=== PATIENT | male | born 1970 ===

== ENCOUNTER 2016-10-22 16:34 | Emergency (ER) | payer OTHER ==
[2016-10-22 16:41] VITALS: TEMP 97.7; O2SAT 98
--- NOTE | 2016-10-22 17:14 | C.PDOC ---
History Of Present Illness 46 y/o morbidly obese make c/o left ankle and foot pain since yesterday; pt sts he was walking and heard something snap. pt took 800 mg ibuprofen wth no relief. pt is poor historian. Time Seen by Provider: 10/22/16 16:51 Chief Complaint (Nursing): Lower Extremity Problem/Injury History Per: Patient History/Exam Limitations: no limitations Onset/Duration Of Symptoms: Days (1) Current Symptoms Are (Timing): Worse Severity: Moderate Recent travel outside of the [place]: No - Ankle/Foot Currently Unable To: Bear Weight Past Medical History Reviewed: Historical Data, Nursing Documentation, Vital Signs Vital Signs: Last Vital Signs Temp 97.7 F 10/22/16 16:38 Pulse 88 10/22/16 19:52 Resp 18 10/22/16 19:52 BP 142/85 10/22/16 19:52 Pulse Ox 98 10/22/16 19:56 - Medical History PMH: Asthma, HTN Other PMH: fluid retention Surgical History: No Surg Hx Family History: States: Unknown Family Hx - Social History Hx Alcohol Use: Yes Hx Substance Use: No (denies today) - Immunization History Hx Tetanus Toxoid Vaccination: No Hx Influenza Vaccination: No Hx Pneumococcal Vaccination: No Review Of Systems Constitutional: Negative for: Fever, Chills Musculoskeletal: Positive for: Foot Pain (and ankle left side) Skin: Negative for: Rash Neurological: Negative for: Weakness, Numbness Physical Exam - Physical Exam Appears: Other (morbidly obese ) Skin: Warm, Dry Extremity: Tenderness (left lateral foot and lateral ankle with +2 pitting edema , no calf tenderness), Pedal Edema, No Calf Tenderness, Swelling Extremity: Left: Bony Point Tenderness (ankle. 5th metatarsal), Painful To Bear Weight, Unable To Bear Weight, Bilateral: Normal Color And Temperature Pulses: Left Dorsalis Pedis: Normal, Right Dorsalis Pedis: Normal Neurological/Psych: Oriented x3, Normal Speech, Normal Cognition, Normal Motor, Normal Sensation ED Course And Treatment O2 Sat by Pulse Oximetry: 98 Medical Decision Making Medical Decision Making: pain to foot and ankle[ will give nsaids, get xrays and re-eval 540pm notified by radiology pt has 5th metatarsal fx, podiatry paged. 555 pm podiatry paged. 559 pm discussed with podiatry, resident will come see patient. 750 pm pt seen by podiatry resident; posterior splint applied by resident. pt given crutches. will d/c home with tylkarri and f/u with Dr Johns on thursday. Disposition Discussed With : Melissa Johns Doctor Will See Patient In The: Office Counseled Patient/Family Regarding: Studies Performed, Diagnosis, Need For Followup, Rx Given - Disposition Referrals: Melissa Johns DPM [Staff Provider] - Disposition: HOME/ ROUTINE Disposition Time: 19:52 Condition: STABLE Additional Instructions: NO weight bearing -use crutches at all times. Follow up with Dr Johns on Thursday - call her office tomorrow to make your appointment. Keep splint clean and dry- cover with plastic when bathing. Take Tylenol as prescribed for pain. Prescriptions: Acetaminophen [Tylenol 325mg tab] 975 mg PO Q8 #50 tab Instructions: Foot Fracture in Adults (ED) Forms: General Discharge Instructions - Clinical Impression Clinical Impression: Fracture of metatarsal bone of left foot
--- NOTE | 2016-10-22 17:45 | RAD ---
Left foot dated 10/22/2016. History: Fifth metatarsal pain. Three standard views of the left foot performed. Correlation made with concurrent radiographs of the left ankle. Current study demonstrates to better advantage diagonal fracture of midshaft of the metatarsal. Chronic appearing unfused fracture traversing the proximal shaft of the 4th metatarsal also seen to better advantage on this exam compared to ankle radiographs. There is mild soft tissue swelling over the medial and lateral malleoli with infiltration extending proximally into the subcutaneous tissues. No other definitive acute displaced fracture nor dislocation. Slight flexion deformities of the 2nd 3rd 4th and to a lesser degree 5th digits. Small plantar surface calcaneal enthesophyte. Impression: Midshaft fracture traversing the 5th metatarsal. 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 Soft tissue swelling. Discussed with the emergency room ALE Weeks at approximately 5:40 p.m. with written down and read back verification
--- NOTE | 2016-10-22 17:47 | RAD ---
PROCEDURE: Left ankle 10/22/2016 HISTORY: Lateral malleoli pain. COMPARISON: Correlation made with concurrent radiographs of the left foot. FINDINGS: The current study reveals a diagonal fracture of midshaft of the metatarsal. . There is a chronic appearing unfused fracture traversing the proximal shaft of the 4th metatarsal. There is mild soft tissue swelling over the medial and lateral malleolar with infiltration extending proximally into the subcutaneous tissues. No other definitive acute displaced fracture nor dislocation. Talar dome intact. Ankle mortise maintained. Note the foot appears to be positioned in inversion on AP and obliques radiographs. 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 . Small plantar surface calcaneal enthesophyte. Impression: Midshaft fracture traversing the 5th metatarsal. 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 Soft tissue swelling. . Degenerative changes of the ankle joint. . Ankle appears be positioned in inversion on the AP and oblique radiographs. Discussed with the emergency room ALE Weeks at approximately 5:40 p.m. with written down and read back verification
[2016-10-22 19:52] VITALS: BP 142/85; PULSE 88; RESP 18
--- NOTE | 2016-10-22 19:56 | CP.PCM.CON ---
History of Present Illness - History of Present Illness History of Present Illness: 46 year old morbidly obese male patient seen in ED for left foot pain. Patient is resting comfortably, AAOx3 and NAD. Patient is a poor historian. Patient reports that he was walking yesterday and felt a "pop" in his left foot. Patient denies any trauma. Patient rates the pain as 9/10 on the top of his left foot when ambulating; minimal pain at rest. Patient admits to taking Ibuprofen and elevating his leg to alleviate the pain. Patient denies N/V/F/C/D/ SOB/CP. No other pedal complaints at this time. PMHx: Hypertension, arthritis PSH: Right knee replacement, left hip replacement FH: non-contributory SH: Half pack per day tobacco use for 5 years, no ETOH, no IVDA Meds: Lasix All: NKDA ROS: 14 point ROS negative except per HPI Past Patient History - Infectious Disease Hx of Infectious Diseases: None - Past Social History Smoking Status: Light Smoker < 10 Cigarettes Daily - CARDIAC Hx Hypertension: Yes - PULMONARY Hx Asthma: Yes - PSYCHIATRIC Hx Substance Use: No (denies today) - SURGICAL HISTORY Hx Surgeries: Yes Hx Orthopedic Surgery: Yes (L hip/ R knee surgery) Other/Comment: Rt. knee x4 rep., Lt. hip rep. - ANESTHESIA Hx Anesthesia: Yes Hx Anesthesia Reactions: No Meds Home Medications: Home Medication List Medication Instructions Recorded Confirmed Type Acetaminophen [Tylenol 325mg tab] 975 mg PO Q8 #50 tab 10/22/16 Rx Allergies/Adverse Reactions: Allergies Allergy/AdvReac Type Severity Reaction Status Date / Time No Known Allergies Allergy Verified 10/22/16 16:41 Physical Exam - Constitutional Appears: Well, Non-toxic, No Acute Distress - Extremities Exam Additional comments: Vasc: DP and PT pulses palpable 2/4 b/l. CFT <3 seconds to all digits x 10, TG warm to warm. +1 pitting edema to RLE. +2 pitting edema to LLE. No increase in warmth noted to left foot. Neuro: Gross sensation intact b/l. Derm: Mild ecchymosis noted to dorsum left 5th metatarsal. No open lesions, rashes, subcutaneous nodules noted. Maceration noted to 3rd and 4th webspaces b/ l. Ortho: Pain on palpation noted to dorsal 5th met shaft left foot. No pain on palpation to plantar 5th met left foot. Pain on active eversion and dorsiflexion left foot. Pain on left 5th met ROM. No pain on left ankle joint ROM. No POP right foot. - Neurological Exam Neurological exam: Alert, Oriented x3 - Psychiatric Exam Psychiatric exam: Normal Affect, Normal Mood Results - Vital Signs Recent Vital Signs: Last Vital Signs Temp 97.7 F 10/22/16 16:38 Pulse 88 10/22/16 19:52 Resp 18 10/22/16 19:52 BP 142/85 10/22/16 19:52 Pulse Ox 98 10/22/16 19:53 Assessment & Plan - Assessment and Plan (Free Text) Assessment: 46 year old morbidly obese male patient with 5th met complete oblique fracture and chronic 4th met base fracture, left foot Plan: Patient examined and evaluated. Chart, labs, vitals reviewed: afebrile, leukocytosis @ 12.1. Discussed with attending, Dr. Johns. Posterior splint applied to patient's LLE. Crutches dispensed to patient. Advised patient to remain NWB, use crutches at all times when ambulating, and to keep dressing clean/dry/intact. - Following instructions, patient was found to be ambulating on posterior splint, without crutches, in ED. Patient was again informed to remain NWB to LLE at all times, but was bearing weight to LLE upon d/c. Advised patient to take extra strength Tylenol as needed for pain. Advised patient to ice and elevate LLE. Stable per podiatry. Patient is to follow up in clinic with Dr. Johns on 10/27/16. Thank you for the consult, please re-consult as needed.
== END 2016-10-22 20:04 | disposition home or self-care (01) ==
LOC: C.ER 16:34
DX: S92.352A Displaced fracture of fifth metatarsal bone, left foot, initial encounter for closed fracture (principal); X58.XXXA Exposure to other specified factors, initial encounter; Y93.01 Activity, walking, marching and hiking; Y92.9 Unspecified place or not applicable
CPT/HCPCS: 29515; 73610; 73630; 96372; 99285; J1885

== ENCOUNTER 2017-01-05 13:26 | Emergency (ER) | payer OTHER | END 2017-01-05 13:49 | disposition left against medical advice (07) | LOC: C.ER 13:26 | DX: Z02.89 Encounter for other administrative examinations (principal) ==

== ENCOUNTER 2017-09-27 09:09 | Inpatient (IN) | payer OTHER ==
[2017-09-27 10:14] LABS: BASO # 0.1 K/uL (0.0-0.2); BASO % 0.9 % (0.0-2.0); EOS # 0.4 K/uL (0.0-0.7); EOS % 3.7 % (0.0-4.0); LYMPH # 1.6 K/uL (1.0-4.3); LYMPH % 14.7 % (20.0-40.0); MEAN CELL VOLUME 89.1 fL (80.0-94.0); MEAN CORPUSCULAR HEMOGLOBIN 30.5 pg (27.0-31.0); MEAN CORPUSCULAR HGB CONC 34.2 g/dL (33.0-37.0); MEAN PLATELET VOLUME 7.1 fL (7.2-11.7); MONO # 1.3 K/uL (0.0-0.8); MONO % 12.1 % (0.0-10.0); NEUT # 7.4 K/uL (1.8-7.0); NEUT % 68.6 % (50.0-75.0); RBC 3.92 Mil/uL (4.40-5.90); RED CELL DISTRIBUTION WIDTH 13.7 % (11.5-14.5); WHITE BLOOD COUNT 10.8 K/uL (4.8-10.8)
[2017-09-27] MEDS ORDERED: Albuterol 0.083% Inhal Sol (2.5 mg/3 mL) UD IH STA (10:22)
[2017-09-27 10:36] LABS: INR 1.1; PROTHROMBIN TIME 11.9 SECONDS (9.7-12.2)
[2017-09-27 10:50] LABS: ALB/GLOB RATIO 1.4 (1.0-2.1); ALBUMIN 3.9 g/dL (3.5-5.0); ALT/SGPT 20 U/L (21-72); AST/SGOT 50 U/L (17-59); BLOOD UREA NITROGEN 17 mg/dL (9-20); CALCIUM 8.7 mg/dl (8.6-10.4); GFR AFRICAN-AMERICAN > 60; GFR NON-AFRICAN AMERICAN > 60
[2017-09-27] MEDS ORDERED: Albuterol-Ipratrop 3 mg / 0.5 (3 ml) UD ONE ×2 (10:54→12:42)
[2017-09-27 10:59] LABS: B-TYPE NATRIURETIC PEPTIDE 79.4 pg/mL (0-450); CK-MB 11.1 ng/mL (0.0-3.38)
[2017-09-27 11:30] LABS: URINE BILIRUBIN NEGATIVE (NEGATIVE); URINE BLOOD NEGATIVE (NEGATIVE); URINE CLARITY Clear (Clear); URINE COLOR Straw (YELLOW); URINE GLUCOSE (UA) NORMAL (Normal); URINE LEUKOCYTE ESTERASE NEG Leu/uL (Negative); URINE PROTEIN NEGATIVE (NEGATIVE); URINE UROBILINOGEN NORMAL mg/dL (0.2-1.0)
[2017-09-27 11:58] LABS: BARBITURATES, UR NEGATIVE (NEGATIVE); BENZODIAZEPINES, UR NEGATIVE (NEGATIVE); PHENCYCLIDINE, UR NEGATIVE (NEGATIVE)
[2017-09-27 12:11] LABS: OPIATES, UR POSITIVE (NEGATIVE)
--- NOTE | 2017-09-27 12:22 | RAD ---
PROCEDURE: CHEST RADIOGRAPH, 1 VIEW HISTORY: SOB COMPARISON: Comparison is made with 09/03/2016 FINDINGS: LUNGS: Mild pulmonary congestion is noted. PLEURA: No pneumothorax or pleural fluid seen. CARDIOVASCULAR: Normal. OSSEOUS STRUCTURES: No significant abnormalities. VISUALIZED UPPER ABDOMEN: Normal. OTHER FINDINGS: None. IMPRESSION: Suboptimal assessment due to portable technique and patient's body habitus. Mild pulmonary vascular congestion.
[2017-09-27] MEDS ORDERED: Albuterol-Ipratrop 3 mg / 0.5 (3 ml) UD INH STA (12:34)
[2017-09-27] MEDS ORDERED: MethylPREDNISolone 40 mg Vial IVP STA (12:34)
[2017-09-27] MEDS ORDERED: MethylPREDNISolone 40 mg Vial ONE (12:42)
[2017-09-27] MEDS ORDERED: Albuterol 0.083% Inhal Sol (2.5 mg/3 mL) UD INH PRN (14:20)
--- NOTE | 2017-09-27 14:51 | RAD ---
HISTORY: shortness of breath COMPARISON: Comparison is made with 09/27/2017 TECHNIQUE: Chest PA and lateral FINDINGS: LUNGS: Interval improvement in the lungs noted since the previous exam. PLEURA: No significant pleural effusion identified. No pneumothorax apparent. CARDIOVASCULAR: Normal. OSSEOUS STRUCTURES: No significant abnormalities. VISUALIZED UPPER ABDOMEN: Normal. OTHER FINDINGS: None. IMPRESSION: Interval improvement in the lungs noted since the previous exam.
--- NOTE | 2017-09-27 15:04 | C.PDOC ---
History Of Present Illness 47 year old male presents to the emergency department with complaints of bilateral leg swelling which has worsened since the last three days. Notes the right leg is always usually bigger than the left secondary to multiple orthopedic surgeries. Patient reports he is also experiencing shortness of breath. He states that he has been taking Lasix daily as well as medicine for hypertension and antibiotics for a right knee surgery 6 months ago. Patient denies fever, chest pain, throat swelling, rash. He states that he used his inhaler with no relief. Time Seen by Provider: 09/27/17 09:17 Chief Complaint (Nursing): Shortness Of Breath History Per: Patient History/Exam Limitations: no limitations Onset/Duration Of Symptoms: Days (3) Current Symptoms Are (Timing): Still Present Current Respiratory Medications: Albuterol Associated Symptoms: Ankle/Leg Swelling (bilateral). denies: Fever, Chest Pain , Other (throat swelling, rash) Past Medical History Reviewed: Historical Data, Nursing Documentation, Vital Signs Vital Signs: Last Vital Signs Temp 98.7 F 09/28/17 13:14 Pulse 80 09/28/17 07:45 Resp 20 09/28/17 07:05 BP 120/69 09/28/17 07:05 Pulse Ox 98 09/28/17 12:00 - Medical History PMH: Asthma, HTN Surgical History: No Surg Hx Family History: States: No Known Family Hx - Social History Hx Alcohol Use: No Hx Substance Use: No ("IN THE PAST") - Immunization History Hx Tetanus Toxoid Vaccination: No Hx Influenza Vaccination: No Hx Pneumococcal Vaccination: No Review Of Systems Except As Marked, All Systems Reviewed And Found Negative. Respiratory: Positive for: Shortness of Breath Musculoskeletal: Positive for: Other (bilateral leg swelling) Physical Exam - Physical Exam Appears: Non-toxic, No Acute Distress, Other (obese, sleepy) Skin: Normal Color, Warm, Dry, Other (no increased warmth or erythema to the lower extremities) Head: Atraumatic, Normacephalic Eye(s): bilateral: Normal Inspection, EOMI Nose: Normal Oral Mucosa: Moist Neck: Normal ROM, Supple Chest: Symmetrical Cardiovascular: Rhythm Regular Respiratory: Decreased Breath Sounds, No Accessory Muscle Use, Other (speaking full sentences) Gastrointestinal/Abdominal: Soft, No Tenderness, Other (obese) Extremity: Pedal Edema (bilateral, right greater than left), No Calf Tenderness Neurological/Psych: Oriented x3, Normal Speech, Other (no focal deficits) ED Course And Treatment - Laboratory Results Result Diagrams: 09/28/17 12:00 09/28/17 12:00 ECG: Interpreted By Me, Viewed By Me ECG Rhythm: Sinus Rhythm (88bpm) ECG Interpretation: Normal O2 Sat by Pulse Oximetry: 97 (RA) Pulse Ox Interpretation: Normal - Radiology CXR: Viewed By Me, Read By Radiologist - Other Rad CXR X-Ray: Viewed By Me, Read By Radiologist Interpretation: PROCEDURE: CHEST RADIOGRAPH, 1 VIEW. HISTORY: SOB. COMPARISON: Comparison is made with 09/03/2016. FINDINGS: LUNGS: Mild pulmonary congestion is noted. PLEURA: No pneumothorax or pleural fluid seen. CARDIOVASCULAR: Normal. OSSEOUS STRUCTURES: No significant abnormalities. VISUALIZED UPPER ABDOMEN: Normal. OTHER FINDINGS: None. IMPRESSION: Suboptimal assessment due to portable technique and patient's body habitus. Mild pulmonary vascular congestion. Progress Note: Labs, CXR, nebulizers, and lasix ordered. Pt notes he did not take his lasix today. On re-evlauation, pt notes mild improvement. Pt was asked to ambulate but notes he can not walk, his legs are too swollen. Pt occassionally desaturating while sleeping. Case discussed iwht Dr Marte , agreed upon plan and admission. - Physician Consult Information Physician Contacted: Fredrick Kumar Outcome Of Conversation: Agreed upon admission. Disposition - Disposition Disposition: HOSPITALIZED Disposition Time: 14:59 Condition: STABLE - Clinical Impression Clinical Impression: Asthma exacerbation, Bilateral edema of lower extremity - PA / CNC LASER OPERATOR / Resident Statement MD/DO has reviewed & agrees with the documentation as recorded. - Scribe Statement The provider has reviewed the documentation as recorded by the Scribe (Dino Perez) All medical record entries made by the Scribe were at my direction and personally dictated by me. I have reviewed the chart and agree that the record accurately reflects my personal performance of the history, physical exam, medical decision making, and the department course for this patient. I have also personally directed, reviewed, and agree with the discharge instructions and disposition.
[2017-09-27 19:00] LABS: ABG ALLEN TEST POS; ARTERIAL BLOOD GAS HCO3 28.2 mmol/L (21-28); ARTERIAL BLOOD GAS HEMOGLOBIN 15.1 g/dL (11.7-17.4); ARTERIAL BLOOD GAS O2 SAT 94.2 % (95-98); ARTERIAL BLOOD GAS PCO2 58 mm/Hg (35-45); ARTERIAL BLOOD GAS PH 7.35 (7.35-7.45); ARTERIAL BLOOD GAS TCO2 33.8 mmol/L (22-28)
--- NOTE | 2017-09-27 22:39 | CP.PCM.CON ---
History of Present Illness - History of Present Illness History of Present Illness: 46 years old male complaining of pain and swelling of the right lower leg for the past 3 days. He was put on oral antibiotic by his orthopedist without any improvement of his leg sweeling and pain. He is also complaining of SOB, but no chest pain. He is known to be obese. asthmatic, with a right knee surgery in 2017. He denies any history of heart disease, DM, HPTN. He denies any cigarette smoking, any alcohol abuse. His father has heart disease. Review of Systems - Constitutional Constitutional: Chills - Cardiovascular Cardiovascular: Dyspnea - Respiratory Respiratory: Dyspnea - Integumentary Integumentary: Swelling Additional comments: Swelling, redness, and tender right lower leg. - Psychiatric Psychiatric: Anxiety Past Patient History - Infectious Disease Hx of Infectious Diseases: None - Tetanus Immunizations Tetanus Immunization: Unknown - Past Medical History & Family History Past Medical History?: Yes - Past Social History Smoking Status: Light Smoker < 10 Cigarettes Daily Alcohol: None Home Situation {Lives}: With Family Domestic Violence: Negative - CARDIAC Hx Cardiac Disorders: No Hx Hypertension: Yes - PULMONARY Hx Asthma: Yes - PSYCHIATRIC Hx Substance Use: No ("IN THE PAST") - SURGICAL HISTORY Hx Surgeries: Yes Hx Orthopedic Surgery: Yes (L hip/ R knee surgery) Other/Comment: Rt. knee x4 rep., Lt. hip rep. - ANESTHESIA Hx Anesthesia: Yes Hx Anesthesia Reactions: No Meds Allergies/Adverse Reactions: Allergies Allergy/AdvReac Type Severity Reaction Status Date / Time No Known Allergies Allergy Verified 09/27/17 09:30 - Medications Medications: Current Medications Acetaminophen (Tylenol 325mg Tab) 975 mg PO Q8 [facility] Last Admin: 09/27/17 21:13 Dose: 975 mg Albuterol Sulfate (Albuterol 0.083% Inhal Martha (2.5 Mg/3 Ml) Ud) 2.5 mg INH RQ6 AMEYA Cefazolin Sodium 500 mg/ (Sodium Chloride) 100 mls @ 100 mls/hr IVPB Q8H AMEYA PRN Reason: Protocol Physical Exam - Constitutional Appears: No Acute Distress - Head Exam Head Exam: NORMAL INSPECTION - Eye Exam Eye Exam: Normal appearance Pupil Exam: NORMAL ACCOMODATION - ENT Exam ENT Exam: Normal Exam - Neck Exam Neck exam: Positive for: Normal Inspection - Respiratory Exam Respiratory Exam: Clear to Auscultation Bilateral, NORMAL BREATHING PATTERN - Cardiovascular Exam Cardiovascular Exam: REGULAR RHYTHM - GI/Abdominal Exam GI & Abdominal Exam: Normal Bowel Sounds, Soft - Rectal Exam Rectal Exam: Deferred - Exam Exam: NORMAL INSPECTION - Extremities Exam Additional comments: Right calf tenderness with edema and mild erythema. - Back Exam Back exam: NORMAL INSPECTION - Neurological Exam Neurological exam: Alert, CN II-XII Intact, Oriented x3 - Psychiatric Exam Psychiatric exam: Anxious - Skin Additional comments: Mild erythema of the right lower leg. Results - Vital Signs Recent Vital Signs: Last Vital Signs Temp 98.2 F 09/27/17 20:10 Pulse 94 H 09/27/17 20:10 Resp 20 09/27/17 20:10 BP 140/86 09/27/17 20:10 Pulse Ox 96 09/27/17 20:10 - Labs Result Diagrams: 09/27/17 10:07 09/27/17 10:07 Labs: Laboratory Results - last 24 hr 09/27/17 09/27/17 09/27/17 10:07 10:07 10:07 WBC 10.8 RBC 3.92 L Hgb 12.0 Hct 34.9 L MCV 89.1 MCH 30.5 MCHC 34.2 RDW 13.7 Plt Count 282 MPV 7.1 L Neut % (Auto) 68.6 Lymph % (Auto) 14.7 L Evans % (Auto) 12.1 H Eos % (Auto) 3.7 Baso % (Auto) 0.9 Neut # (Auto) 7.4 H Lymph # (Auto) 1.6 Evans # (Auto) 1.3 H Eos # (Auto) 0.4 Baso # (Auto) 0.1 PT 11.9 INR 1.1 APTT 29 Puncture Site pCO2 HCO3 ABG pH ABG Total CO2 ABG O2 Saturation ABG Base Excess ABG Hemoglobin ABG Carboxyhemoglobin POC ABG HHb (Measured) ABG Methemoglobin Gasper Test Hgb O2 Saturation Liter Flow FiO2 Sodium 138 Potassium 4.2 Chloride 98 Carbon Dioxide 28 Anion Gap 16 BUN 17 Creatinine 0.7 L Est GFR ( Amer) > 60 Est GFR (Non-Af Amer) > 60 Random Glucose 106 Calcium 8.7 Total Bilirubin 0.7 AST 50 ALT 20 L Alkaline Phosphatase 68 Total Creatine Kinase 639 H CK-MB (Mass) 11.1 H Troponin I 0.0460 NT-Pro-B Natriuret Pep 79.4 Total Protein 6.7 Albumin 3.9 Globulin 2.8 Albumin/Globulin Ratio 1.4 Urine Color Urine Clarity Urine pH Ur Specific [place] Urine Protein Urine Glucose (UA) Urine Ketones Urine Blood Urine Nitrate Urine Bilirubin Urine Urobilinogen Ur Leukocyte Esterase Urine WBC (Auto) Urine RBC (Auto) Urine Opiates Screen Urine Methadone Screen Ur Barbiturates Screen Ur Phencyclidine Scrn Ur Amphetamines Screen U Benzodiazepines Scrn U Oth Cocaine Metabols U Cannabinoids Screen 09/27/17 09/27/17 09/27/17 11:23 11:23 18:53 WBC RBC Hgb Hct MCV MCH MCHC RDW Plt Count MPV Neut % (Auto) Lymph % (Auto) Evans % (Auto) Eos % (Auto) Baso % (Auto) Neut # (Auto) Lymph # (Auto) Evans # (Auto) Eos # (Auto) Baso # (Auto) PT INR APTT Puncture Site Rra pCO2 58 H HCO3 28.2 H ABG pH 7.35 ABG Total CO2 33.8 H ABG O2 Saturation 94.2 L ABG Base Excess 4.5 H ABG Hemoglobin 15.1 ABG Carboxyhemoglobin 2.9 H POC ABG HHb (Measured) 5.6 H ABG Methemoglobin 1.1 Gasper Test Pos Hgb O2 Saturation 90.5 L Liter Flow 2.0 FiO2 28.0 Sodium Potassium Chloride Carbon Dioxide Anion Gap BUN Creatinine Est GFR ( Amer) Est GFR (Non-Af Amer) Random Glucose Calcium Total Bilirubin AST ALT Alkaline Phosphatase Total Creatine Kinase CK-MB (Mass) Troponin I NT-Pro-B Natriuret Pep Total Protein Albumin Globulin Albumin/Globulin Ratio Urine Color Straw Urine Clarity Clear Urine pH 5.0 Ur Specific [place] 1.005 Urine Protein Negative Urine Glucose (UA) Normal Urine Ketones Negative Urine Blood Negative Urine Nitrate Negative Urine Bilirubin Negative Urine Urobilinogen Normal Ur Leukocyte Esterase Neg Urine WBC (Auto) < 1 Urine RBC (Auto) < 1 Urine Opiates Screen Positive H Urine Methadone Screen Negative Ur Barbiturates Screen Negative Ur Phencyclidine Scrn Negative Ur Amphetamines Screen Negative U Benzodiazepines Scrn Negative U Oth Cocaine Metabols Negative U Cannabinoids Screen Negative Assessment & Plan (1) Bilateral edema of lower extremity Assessment and Plan: Probably cellulitis of the right lower leg, since CXR was negative for infiltrate, normal serim TNI's and pro-BNP. Jatinder order IV Ancef empirically, an echocardiogram and a venous duplex scan of the lower extremities. Acute CHF is unlikely, so will discontinue PO Lasix. Status: Acute
[2017-09-27] MEDS: Albuterol 0.083% Inhal Sol (2.5 mg/3 mL) UD INH SCH (22:46)
--- NOTE | 2017-09-27 23:49 | CP.PCM.HP ---
History of Present Illness - History of Present Illness History of Present Illness: 56 year old male admitted thru the [facility] ER with shortness of breath and swelling in both legs. He denies any chest pain. Past history includes asthma, right knee surgery and thrombophlebitis. Present on Admission - Present on Admission Any Indicators Present on Admission: No History of DVT/PE: No History of Uncontrolled Diabetes: No Urinary Catheter: No Decubitus Ulcer Present: No History Surgical Site Infection Following: Orthopedic Procedures (knee arthroscopy) Review of Systems - Constitutional Constitutional: Fatigue, Weight Gain - EENT Eyes: Itchy Eyes - Cardiovascular Cardiovascular: Dyspnea on Exertion - Respiratory Respiratory: Snoring - Gastrointestinal Gastrointestinal: Belching - Musculoskeletal Musculoskeletal: Arthralgias - Psychiatric Psychiatric: Depression Past Patient History - Infectious Disease Hx of Infectious Diseases: None - Tetanus Immunizations Tetanus Immunization: Unknown - Past Medical History & Family History Past Medical History?: Yes - Past Social History Smoking Status: Light Smoker < 10 Cigarettes Daily Chewing Tobacco Use: No Cigar Use: No Alcohol: None Home Situation {Lives}: With Family Domestic Violence: Negative - CARDIAC Hx Cardiac Disorders: No Hx Hypertension: Yes - PULMONARY Hx Asthma: Yes - MUSCULOSKELETAL/RHEUMATOLOGICAL Hx Arthritis: Yes Hx Gout: Yes Hx Osteomyelitis: No - PSYCHIATRIC Hx Depression: Yes Hx Substance Use: No ("IN THE PAST") - SURGICAL HISTORY Hx Surgeries: Yes Hx Orthopedic Surgery: Yes (L hip/ R knee surgery) Other/Comment: Rt. knee x4 rep., Lt. hip rep. - ANESTHESIA Hx Anesthesia: Yes Hx Anesthesia Reactions: No Meds Allergies/Adverse Reactions: Allergies Allergy/AdvReac Type Severity Reaction Status Date / Time No Known Allergies Allergy Verified 09/27/17 09:30 Physical Exam - Constitutional Appears: Chronically Ill - Head Exam Head Exam: NORMOCEPHALIC - Eye Exam Eye Exam: Normal appearance Pupil Exam: NORMAL ACCOMODATION - ENT Exam ENT Exam: Normal Exam - Neck Exam Neck exam: Positive for: Normal Inspection - Respiratory Exam Respiratory Exam: Decreased Breath Sounds - Cardiovascular Exam Cardiovascular Exam: REGULAR RHYTHM - Rectal Exam Rectal Exam: Deferred - Exam External exam: NORMAL EXTERNAL EXAM - Extremities Exam Extremities exam: Positive for: pedal edema - Neurological Exam Neurological exam: Oriented x3 - Skin Skin Exam: Dry Results - Vital Signs Recent Vital Signs: Last Vital Signs Temp 98.2 F 09/27/17 20:10 Pulse 94 H 09/27/17 20:10 Resp 20 09/27/17 20:10 BP 140/86 09/27/17 20:10 Pulse Ox 96 09/27/17 20:10 - Labs Result Diagrams: 09/27/17 10:07 09/27/17 10:07 Labs: Laboratory Results - last 24 hr 09/27/17 09/27/17 09/27/17 10:07 10:07 10:07 WBC 10.8 RBC 3.92 L Hgb 12.0 Hct 34.9 L MCV 89.1 MCH 30.5 MCHC 34.2 RDW 13.7 Plt Count 282 MPV 7.1 L Neut % (Auto) 68.6 Lymph % (Auto) 14.7 L Butts % (Auto) 12.1 H Eos % (Auto) 3.7 Baso % (Auto) 0.9 Neut # (Auto) 7.4 H Lymph # (Auto) 1.6 Butts # (Auto) 1.3 H Eos # (Auto) 0.4 Baso # (Auto) 0.1 PT 11.9 INR 1.1 APTT 29 Puncture Site pCO2 HCO3 ABG pH ABG Total CO2 ABG O2 Saturation ABG Base Excess ABG Hemoglobin ABG Carboxyhemoglobin POC ABG HHb (Measured) ABG Methemoglobin Gasper Test Hgb O2 Saturation Liter Flow FiO2 Sodium 138 Potassium 4.2 Chloride 98 Carbon Dioxide 28 Anion Gap 16 BUN 17 Creatinine 0.7 L Est GFR ( Amer) > 60 Est GFR (Non-Af Amer) > 60 Random Glucose 106 Calcium 8.7 Total Bilirubin 0.7 AST 50 ALT 20 L Alkaline Phosphatase 68 Total Creatine Kinase 639 H CK-MB (Mass) 11.1 H Troponin I 0.0460 NT-Pro-B Natriuret Pep 79.4 Total Protein 6.7 Albumin 3.9 Globulin 2.8 Albumin/Globulin Ratio 1.4 Urine Color Urine Clarity Urine pH Ur Specific [place] Urine Protein Urine Glucose (UA) Urine Ketones Urine Blood Urine Nitrate Urine Bilirubin Urine Urobilinogen Ur Leukocyte Esterase Urine WBC (Auto) Urine RBC (Auto) Urine Opiates Screen Urine Methadone Screen Ur Barbiturates Screen Ur Phencyclidine Scrn Ur Amphetamines Screen U Benzodiazepines Scrn U Oth Cocaine Metabols U Cannabinoids Screen 09/27/17 09/27/17 09/27/17 11:23 11:23 18:53 WBC RBC Hgb Hct MCV MCH MCHC RDW Plt Count MPV Neut % (Auto) Lymph % (Auto) Butts % (Auto) Eos % (Auto) Baso % (Auto) Neut # (Auto) Lymph # (Auto) Butts # (Auto) Eos # (Auto) Baso # (Auto) PT INR APTT Puncture Site Rra pCO2 58 H HCO3 28.2 H ABG pH 7.35 ABG Total CO2 33.8 H ABG O2 Saturation 94.2 L ABG Base Excess 4.5 H ABG Hemoglobin 15.1 ABG Carboxyhemoglobin 2.9 H POC ABG HHb (Measured) 5.6 H ABG Methemoglobin 1.1 Gasper Test Pos Hgb O2 Saturation 90.5 L Liter Flow 2.0 FiO2 28.0 Sodium Potassium Chloride Carbon Dioxide Anion Gap BUN Creatinine Est GFR ( Amer) Est GFR (Non-Af Amer) Random Glucose Calcium Total Bilirubin AST ALT Alkaline Phosphatase Total Creatine Kinase CK-MB (Mass) Troponin I NT-Pro-B Natriuret Pep Total Protein Albumin Globulin Albumin/Globulin Ratio Urine Color Straw Urine Clarity Clear Urine pH 5.0 Ur Specific [place] 1.005 Urine Protein Negative Urine Glucose (UA) Normal Urine Ketones Negative Urine Blood Negative Urine Nitrate Negative Urine Bilirubin Negative Urine Urobilinogen Normal Ur Leukocyte Esterase Neg Urine WBC (Auto) < 1 Urine RBC (Auto) < 1 Urine Opiates Screen Positive H Urine Methadone Screen Negative Ur Barbiturates Screen Negative Ur Phencyclidine Scrn Negative Ur Amphetamines Screen Negative U Benzodiazepines Scrn Negative U Oth Cocaine Metabols Negative U Cannabinoids Screen Negative Assessment & Plan (1) Cellulitis Status: Acute (2) Bilateral edema of lower extremity Status: Acute (3) Constipation Status: Acute (4) Leg pain Status: Acute
[2017-09-28] MEDS: Albuterol 0.083% Inhal Sol (2.5 mg/3 mL) UD INH SCH ×4 (01:21→19:50)
[2017-09-28] MEDS: Enoxaparin 30 mg Syringe SC SCH (10:06)
[2017-09-28 12:14] LABS: BASO % 0.1 % (0.0-2.0); HEMOGLOBIN 12.2 g/dL (12.0-18.0); LYMPH # 1.2 K/uL (1.0-4.3); LYMPH % 6.4 % (20.0-40.0); MEAN CELL VOLUME 88.2 fL (80.0-94.0); MEAN CORPUSCULAR HEMOGLOBIN 29.8 pg (27.0-31.0); MEAN CORPUSCULAR HGB CONC 33.8 g/dL (33.0-37.0); MEAN PLATELET VOLUME 7.5 fL (7.2-11.7); MONO # 1.6 K/uL (0.0-0.8); MONO % 8.3 % (0.0-10.0); NEUT # 15.9 K/uL (1.8-7.0); NEUT % 85.2 % (50.0-75.0); PLATELET COUNT 322 K/uL (130-400); RBC 4.11 Mil/uL (4.40-5.90); RED CELL DISTRIBUTION WIDTH 13.5 % (11.5-14.5)
[2017-09-28 12:20] LABS: WHITE BLOOD COUNT 18.7 K/uL (4.8-10.8)
[2017-09-28 12:24] LABS: BLOOD UREA NITROGEN 20 mg/dL (9-20); CALCIUM 9.1 mg/dl (8.6-10.4); GFR AFRICAN-AMERICAN > 60; GFR NON-AFRICAN AMERICAN > 60
[2017-09-28 12:25] LABS: ALB/GLOB RATIO 1.3 (1.0-2.1); ALBUMIN 3.9 g/dL (3.5-5.0); ALT/SGPT 18 U/L (21-72); AST/SGOT 38 U/L (17-59)
[2017-09-28 12:43] LABS: BANDS 4 % (0-2); LYMPHOCYTE 5 % (20-40); MONOCYTE 8 % (0-10); MYELOCYTE 1 % (0-0); NEUTROPHIL 82 % (50-75); PLATELET ESTIMATE NORMAL (NORMAL); TOTAL CELLS COUNTED 100
--- NOTE | 2017-09-28 14:04 | VASCLAB ---
PROCEDURE: Lower Extremity Venous Duplex Exam. HISTORY: Edema of both legs. PRIORS: None. TECHNIQUE: Bilateral common femoral, femoral, popliteal and posterior tibial, peroneal and great saphenous veins were evaluated. Flow was assessed with color Doppler, compressibility, assessment of phasic flow and augmentation response. Report prepared by JA Sandoval FINDINGS: RIGHT: 1. Common Femoral Vein: 1.1. Compressibility - Fully compressible: Thrombus - None : Flow - Phasic: Augmentation -Normal: Reflux - None. 2. Femoral Vein: 2.1. Compressibility - Fully compressible: Thrombus - None : Flow - Phasic: Augmentation -Normal: Reflux - None. 3. Popliteal Vein: 3.1. Compressibility - Fully compressible: Thrombus - None : Flow - Phasic: Augmentation -Normal: Reflux - Mild. 4. Posterior Tibial Vein: 4.1. Compressibility - Fully compressible: Thrombus - None: Flow - Phasic: Augmentation -Normal: Reflux - None. 5. Peroneal Vein: 5.1. Not visualized. 6. Great Saphenous Vein: 6.1. Compressibility - Fully compressible: Thrombus - None: Flow - Phasic: Augmentation - Normal: Reflux - None. LEFT: 1. Common Femoral Vein: 1.1. Compressibility - Fully compressible: Thrombus - None: Flow - Phasic: Augmentation -Normal: Reflux - None. 2. Femoral Vein: 2.1. Compressibility - Fully compressible: Thrombus - None: Flow - Phasic: Augmentation -Normal: Reflux - None. 3. Popliteal Vein: 3.1. Compressibility - Fully compressible: Thrombus - None : Flow - Phasic: Augmentation -Normal: Reflux - None. 4. Posterior Tibial Vein: 4.1. Compressibility - Fully compressible: Thrombus - None: Flow - Phasic: Augmentation -Normal: Reflux - None. 5. Peroneal Vein: 5.1. Not visualized. 6. Great Saphenous Vein: 6.1. Compressibility - Fully compressible: Thrombus - None: Flow - Phasic: Augmentation - Normal: Reflux - None. OTHER FINDINGS: Bilateral peroneal veins could not be imaged due to swelling. IMPRESSION: Right: No evidence of deep or superficial vein thrombosis of the right lower extremity. Mild valvular incompetence of the popliteal vein. Left: No evidence of deep or superficial vein thrombosis of the left lower extremity. Normal valve function noted of the left side.
[2017-09-28 14:20] LABS: ABG ALLEN TEST POS; ARTERIAL BLOOD GAS HCO3 32.2 mmol/L (21-28); ARTERIAL BLOOD GAS HEMOGLOBIN 12.5 g/dL (11.7-17.4); ARTERIAL BLOOD GAS O2 SAT 93.2 % (95-98); ARTERIAL BLOOD GAS PCO2 49 mm/Hg (35-45); ARTERIAL BLOOD GAS PH 7.46 (7.35-7.45); ARTERIAL BLOOD GAS PO2 57 mm/Hg (80-100); ARTERIAL BLOOD GAS TCO2 36.3 mmol/L (22-28)
[2017-09-29] MEDS: Albuterol 0.083% Inhal Sol (2.5 mg/3 mL) UD INH SCH ×4 (01:20→20:00)
[2017-09-29 07:56] LABS: BASO # 0.1 K/uL (0.0-0.2); BASO % 0.6 % (0.0-2.0); EOS # 0.1 K/uL (0.0-0.7); EOS % 0.5 % (0.0-4.0); HEMOGLOBIN 12.1 g/dL (12.0-18.0); LYMPH # 2.3 K/uL (1.0-4.3); LYMPH % 17.1 % (20.0-40.0); MEAN CELL VOLUME 88.9 fL (80.0-94.0); MEAN CORPUSCULAR HEMOGLOBIN 29.4 pg (27.0-31.0); MEAN CORPUSCULAR HGB CONC 33.1 g/dL (33.0-37.0); MEAN PLATELET VOLUME 7.3 fL (7.2-11.7); MONO % 7.7 % (0.0-10.0); NEUT # 9.9 K/uL (1.8-7.0); NEUT % 74.1 % (50.0-75.0); RBC 4.1 Mil/uL (4.40-5.90); RED CELL DISTRIBUTION WIDTH 13.7 % (11.5-14.5); WHITE BLOOD COUNT 13.3 K/uL (4.8-10.8)
[2017-09-29 08:08] LABS: ALBUMIN 3.2 g/dL (3.5-5.0); ALT/SGPT 15 U/L (21-72); AST/SGOT 28 U/L (17-59); BLOOD UREA NITROGEN 21 mg/dL (9-20); CALCIUM 8.4 mg/dl (8.6-10.4); GFR AFRICAN-AMERICAN > 60; GFR NON-AFRICAN AMERICAN > 60
--- NOTE | 2017-09-29 08:09 | CARD ---
APPROVED REPORT EXAM: Two-dimensional and M-mode echocardiogram with Doppler and color Doppler. Other Information Quality : TDSRhythm : INDICATION Dyspnea Peripheral Edema 2D DIMENSIONS IVSd1.5 (0.7-1.1cm)LVDd4.8 (3.9-5.9cm) PWd1.5 (0.7-1.1cm)LVDs3.2 (2.5-4.0cm) FS (%) 34.6 %LVEF (%)63.6 (>50%) M-Mode DIMENSIONS Left Atrium (MM)4.46 (2.5-4.0cm)Aortic Root3.98 (2.2-3.7cm) Aortic Cusp Exc.2.88 (1.5-2.0cm) Mitral Valve MV E Bjygrkdx01.3cm/sMV A Wmjilztz40.9cm/sE/A ratio0.9 TDI E/Lateral E'0.0E/Medial E'0.0 LEFT VENTRICLE The left ventricle is normal size. There is moderate concentric left ventricular hypertrophy. Left ventricle systolic function is normal. The Ejection Fraction is 60-65%. There is normal LV segmental wall motion. Tissue Doppler imaging reveals abnormal left ventricular diastolic dysfunction. RIGHT VENTRICLE The right ventricle is normal size. There is normal right ventricular wall thickness. The right ventricular systolic function is normal. ATRIA The left atrium size is normal. The right atrium size is normal. The interatrial septum is intact with no evidence for an atrial septal defect. AORTIC VALVE The aortic valve is normal in structure. No aortic regurgitation is present. There is no aortic valvular stenosis. MITRAL VALVE The mitral valve is normal in structure. There is no evidence of mitral valve prolapse. There is no mitral valve stenosis. There is no mitral valve regurgitation noted. TRICUSPID VALVE The tricuspid valve is normal in structure. There is no tricuspid valve regurgitation noted. There is no tricuspid valve prolapse or vegetation. There is no tricuspid valve stenosis. PULMONIC VALVE The pulmonic valve is not well visualized. There is no pulmonic valvular regurgitation. GREAT VESSELS The aortic root is normal in size. PERICARDIAL EFFUSION There is no pericardial effusion. <Conclusion> Left ventricle systolic function is normal. The Ejection Fraction is 60-65%. Hypertensive heart disease. Diastolic dysfunction. No aortic regurgitation is present. There is no mitral valve regurgitation noted. There is no tricuspid valve regurgitation noted. There is no pulmonic valvular regurgitation.
[2017-09-29] MEDS: Enoxaparin 30 mg Syringe SC SCH (09:16)
--- NOTE | 2017-09-29 11:04 | CP.PCM.PN ---
Subjective - Date & Time of Evaluation Date of Evaluation: 09/28/17 Time of Evaluation: 17:35 - Subjective Subjective: Patient has less shortness of breath. Right knee has less stiffness. Dr Moya evaluated the patient. Contiue present therapy. Objective - Vital Signs/Intake and Output Vital Signs (last 24 hours): Temp Pulse Resp BP Pulse Ox 98.5 F 83 22 127/75 98 09/29/17 07:00 09/29/17 07:25 09/29/17 07:00 09/29/17 07:00 09/29/17 08:00 Intake and Output: 09/29/17 09/29/17 06:59 18:59 Output Total 600 Balance -600 - Medications Medications: Current Medications Acetaminophen (Tylenol 325mg Tab) 975 mg PO Q8 [facility] Last Admin: 09/29/17 06:06 Dose: Not Given Albuterol Sulfate (Albuterol 0.083% Inhal Martha (2.5 Mg/3 Ml) Ud) 2.5 mg INH RQ6 [facility] Last Admin: 09/29/17 08:19 Dose: 2.5 mg Enoxaparin Sodium (Lovenox) 30 mg SC DAILY [facility] Last Admin: 09/29/17 09:16 Dose: 30 mg Cefazolin Sodium 500 mg/ (Sodium Chloride) 100 mls @ 100 mls/hr IVPB Q8H [facility] PRN Reason: Protocol Last Admin: 09/29/17 06:02 Dose: 100 mls/hr - Labs Labs: 09/29/17 07:43 09/29/17 07:43 PT 11.9 SECONDS (9.7-12.2) 09/27/17 10:07 INR 1.1 09/27/17 10:07 APTT 29 SECONDS (21-34) 09/27/17 10:07 - Constitutional Appears: No Acute Distress - Head Exam Head Exam: NORMOCEPHALIC - Eye Exam Eye Exam: Normal appearance Pupil Exam: NORMAL ACCOMODATION - ENT Exam ENT Exam: Normal Exam - Neck Exam Neck Exam: Normal Inspection - Respiratory Exam Respiratory Exam: Decreased Breath Sounds - Cardiovascular Exam Cardiovascular Exam: REGULAR RHYTHM - GI/Abdominal Exam GI & Abdominal Exam: Normal Bowel Sounds - Rectal Exam Rectal Exam: Deferred - Exam Exam: NORMAL INSPECTION - Extremities Exam Extremities Exam: Pedal Edema - Back Exam Back Exam: NORMAL INSPECTION - Neurological Exam Neurological Exam: Oriented x3 - Psychiatric Exam Psychiatric exam: Depressed - Skin Skin Exam: Dry Assessment and Plan (1) Cellulitis Status: Acute (2) Bilateral edema of lower extremity Status: Acute (3) Constipation Status: Acute (4) Leg pain Status: Acute
[2017-09-29 15:37] VITALS: RESP 20
--- NOTE | 2017-09-29 16:44 | CP.PCM.PN ---
Subjective - Date & Time of Evaluation Date of Evaluation: 09/29/17 Time of Evaluation: 16:41 - Subjective Subjective: Patient has no SOB, less right calf tenderness. Echo: Normal LV systolic function. Duplex venous scan of the legs: no DVT. Objective - Vital Signs/Intake and Output Vital Signs (last 24 hours): Temp Pulse Resp BP Pulse Ox 98.3 F 77 20 157/83 H 94 L 09/29/17 15:36 09/29/17 15:36 09/29/17 15:36 09/29/17 15:36 09/29/17 15:36 Intake and Output: 09/29/17 09/29/17 06:59 18:59 Output Total 600 Balance -600 - Medications Medications: Current Medications Acetaminophen (Tylenol 325mg Tab) 975 mg PO Q8 [facility] Last Admin: 09/29/17 13:33 Dose: 975 mg Albuterol Sulfate (Albuterol 0.083% Inhal Martha (2.5 Mg/3 Ml) Ud) 2.5 mg INH RQ6 [facility] Last Admin: 09/29/17 13:27 Dose: 2.5 mg Enoxaparin Sodium (Lovenox) 30 mg SC DAILY [facility] Last Admin: 09/29/17 09:16 Dose: 30 mg Cefazolin Sodium 500 mg/ (Sodium Chloride) 100 mls @ 100 mls/hr IVPB Q8H [facility] PRN Reason: Protocol Last Admin: 09/29/17 14:32 Dose: 100 mls/hr - Labs Labs: 09/29/17 07:43 09/29/17 07:43 PT 11.9 SECONDS (9.7-12.2) 09/27/17 10:07 INR 1.1 09/27/17 10:07 APTT 29 SECONDS (21-34) 09/27/17 10:07 - Constitutional Appears: No Acute Distress - Head Exam Head Exam: NORMAL INSPECTION - Eye Exam Eye Exam: Normal appearance - ENT Exam ENT Exam: Normal Exam - Neck Exam Neck Exam: Normal Inspection - Respiratory Exam Respiratory Exam: Clear to Ausculation Bilateral, NORMAL BREATHING PATTERN - Cardiovascular Exam Cardiovascular Exam: REGULAR RHYTHM - GI/Abdominal Exam GI & Abdominal Exam: Soft, Normal Bowel Sounds - Rectal Exam Rectal Exam: Deferred - Extremities Exam Additional comments: Decreased edema and erythema of the right lower leg. - Back Exam Back Exam: NORMAL INSPECTION - Neurological Exam Neurological Exam: Alert, Awake, Oriented x3 - Psychiatric Exam Psychiatric exam: Anxious Assessment and Plan (1) Bilateral edema of lower extremity Assessment & Plan: To continue IV antibiotics. Status: Acute
--- NOTE | 2017-09-29 22:36 | CP.PCM.PN ---
Subjective - Date & Time of Evaluation Date of Evaluation: 09/29/17 Time of Evaluation: 13:20 - Subjective Subjective: Patient alert with less shortness of breath. Venous duplex scan negative, left vetricular function negative. Continue antibiotic therapy. Objective - Vital Signs/Intake and Output Vital Signs (last 24 hours): Temp Pulse Resp BP Pulse Ox 98.3 F 79 20 157/83 H 94 L 09/29/17 15:36 09/29/17 16:00 09/29/17 15:36 09/29/17 15:36 09/29/17 15:36 - Medications Medications: Current Medications Acetaminophen (Tylenol 325mg Tab) 975 mg PO Q8 [facility] Last Admin: 09/29/17 13:33 Dose: 975 mg Albuterol Sulfate (Albuterol 0.083% Inhal Martha (2.5 Mg/3 Ml) Ud) 2.5 mg INH RQ6 [facility] Last Admin: 09/29/17 20:00 Dose: Not Given Enoxaparin Sodium (Lovenox) 30 mg SC DAILY [facility] Last Admin: 09/29/17 09:16 Dose: 30 mg Cefazolin Sodium 500 mg/ (Sodium Chloride) 100 mls @ 100 mls/hr IVPB Q8H [facility] PRN Reason: Protocol Last Admin: 09/29/17 14:32 Dose: 100 mls/hr - Labs Labs: 09/29/17 07:43 09/29/17 07:43 PT 11.9 SECONDS (9.7-12.2) 09/27/17 10:07 INR 1.1 09/27/17 10:07 APTT 29 SECONDS (21-34) 09/27/17 10:07 - Constitutional Appears: No Acute Distress - Head Exam Head Exam: NORMOCEPHALIC - Eye Exam Eye Exam: Normal appearance Pupil Exam: NORMAL ACCOMODATION - ENT Exam ENT Exam: Normal Exam - Neck Exam Neck Exam: Normal Inspection - Respiratory Exam Respiratory Exam: Decreased Breath Sounds - Cardiovascular Exam Cardiovascular Exam: REGULAR RHYTHM - GI/Abdominal Exam GI & Abdominal Exam: Normal Bowel Sounds - Rectal Exam Rectal Exam: Deferred - Exam Exam: NORMAL INSPECTION - Extremities Exam Extremities Exam: Tenderness - Back Exam Back Exam: NORMAL INSPECTION - Neurological Exam Neurological Exam: Oriented x3 - Psychiatric Exam Psychiatric exam: Depressed - Skin Skin Exam: Dry Assessment and Plan (1) Cellulitis Status: Acute (2) Bilateral edema of lower extremity Status: Acute (3) Constipation Status: Acute (4) Leg pain Status: Acute
[2017-09-30] MEDS: Albuterol 0.083% Inhal Sol (2.5 mg/3 mL) UD INH SCH ×4 (01:43→20:17)
[2017-09-30 07:52] LABS: BASO # 0.1 K/uL (0.0-0.2); BASO % 0.7 % (0.0-2.0); EOS # 0.2 K/uL (0.0-0.7); EOS % 2.3 % (0.0-4.0); LYMPH # 1.9 K/uL (1.0-4.3); LYMPH % 18.2 % (20.0-40.0); MEAN CORPUSCULAR HEMOGLOBIN 29.6 pg (27.0-31.0); MEAN CORPUSCULAR HGB CONC 33.3 g/dL (33.0-37.0); MEAN PLATELET VOLUME 7.1 fL (7.2-11.7); MONO # 0.9 K/uL (0.0-0.8); MONO % 8.6 % (0.0-10.0); NEUT # 7.2 K/uL (1.8-7.0); NEUT % 70.2 % (50.0-75.0); NRBC % 0.1 % (0.0-2.0); RBC 4.4 Mil/uL (4.40-5.90); RED CELL DISTRIBUTION WIDTH 13.5 % (11.5-14.5); WHITE BLOOD COUNT 10.3 K/uL (4.8-10.8)
[2017-09-30 08:01] LABS: ALB/GLOB RATIO 1.3 (1.0-2.1); ALBUMIN 3.8 g/dL (3.5-5.0); ALT/SGPT 19 U/L (21-72); AST/SGOT 28 U/L (17-59); BLOOD UREA NITROGEN 14 mg/dL (9-20); CALCIUM 9.1 mg/dl (8.6-10.4); GFR AFRICAN-AMERICAN > 60; GFR NON-AFRICAN AMERICAN > 60
[2017-09-30] MEDS: Enoxaparin 30 mg Syringe SC SCH (09:06)
[2017-09-30] MEDS ORDERED: Iodixanol 320 MG/ML 100 ML BOTTLE IV ONE (16:30)
[2017-09-30 16:56] LABS: FREE T4 1.04 ng/dL (0.78-2.19)
--- NOTE | 2017-09-30 17:29 | CT ---
PROCEDURE: CT Chest with contrast (Pulmonary Angiogram) HISTORY: Rule out pulmonary embolus the patient with dyspnea and hypoxia COMPARISON: None available. TECHNIQUE: Axial computed tomography images were obtained of the chest in the pulmonary arterial phase of enhancement. Coronal and sagittal reformatted images were created and reviewed. Intravenous contrast dose: 100 cc Visipaque 320 contrast material. Radiation dose: Total exam DLP = 624.68 mGy-cm. This CT exam was performed using one or more of the following dose reduction techniques: Automated exposure control, adjustment of the mA and/or kV according to patient size, and/or use of iterative reconstruction technique. Note the examination is limited by large body habitus with subsequent streak and beam hardening artifact diminishing fine soft tissue detail FINDINGS: PULMONARY ARTERIES: The visualized portions of the pulmonary trunk, right and left main, lobar and proximal segmental branches of the pulmonary arteries appear well opacified. The distal segmental and subsegmental branches poorly seen due to the aforementioned limitations. AORTA: No acute findings. No thoracic aortic aneurysm. The ascending thoracic aorta measures approximately 3.4 cm and descending thoracic aorta measures approximately 3.1 cm. LUNGS: Mild passive/dependent type atelectasis both posterior lower lung zones. . Additionally, there also appear to be ground-glass opacity seen in the upper and lower lobes suggesting air trapping. Minor scarring changes seen in the right middle lobe region. No focal consolidation. No evidence of parenchymal lung masses. PLEURAL SPACES: Unremarkable. No effusion or pneumothorax. HEART: Unremarkable. No cardiomegaly. No significant pericardial effusion. LYMPH NODES: There are multiple small nonspecific mediastinal lymph nodes. BONES, CHEST WALL: Unremarkable. No fracture or destructive lesion . Mild multilevel degenerative spondylosis of the thoracic spine. Mild bilateral gynecomastia changes. Golden OTHER FINDINGS: Spleen is enlarged measuring over 14 cm in AP dimension. IMPRESSION: Suboptimal study due to large body habitus. No evidence of large central pulmonary embolus as detailed above. Note that the distal branches are poorly delineated. Mild diffuse ground-glass opacities suggesting air trapping. The there are also mild passive/dependent type atelectatic changes seen in the posterior lower lung zones. Splenomegaly.
[2017-09-30 21:28] LABS: TOTAL PSA 0.4 ng/mL (< or = 4.0)
--- NOTE | 2017-09-30 22:43 | CP.PCM.PN ---
Subjective - Date & Time of Evaluation Date of Evaluation: 09/30/17 Time of Evaluation: 13:25 - Subjective Subjective: Patient has improved. Shortness of breath and edema of lower extremities has greatly improved. PSA within normal limits. Continue antibiotic therapy. Objective - Vital Signs/Intake and Output Vital Signs (last 24 hours): Temp Pulse Resp BP Pulse Ox 98 F 74 20 166/100 H 94 L 09/30/17 15:45 09/30/17 15:45 09/30/17 15:45 09/30/17 15:45 09/30/17 07:00 Intake and Output: 09/30/17 10/01/17 18:59 06:59 Intake Total 400 Balance 400 - Medications Medications: Current Medications Acetaminophen (Tylenol 325mg Tab) 975 mg PO Q8 [facility] Last Admin: 09/30/17 22:31 Dose: 975 mg Albuterol Sulfate (Albuterol 0.083% Inhal Martha (2.5 Mg/3 Ml) Ud) 2.5 mg INH RQ6 [facility] Last Admin: 09/30/17 20:17 Dose: Not Given Enoxaparin Sodium (Lovenox) 30 mg SC DAILY [facility] Last Admin: 09/30/17 09:06 Dose: 30 mg Cefazolin Sodium 500 mg/ (Sodium Chloride) 100 mls @ 100 mls/hr IVPB Q8H [facility] PRN Reason: Protocol Last Admin: 09/30/17 22:32 Dose: 100 mls/hr Losartan Potassium (Cozaar) 50 mg PO DAILY [facility] Last Admin: 09/30/17 17:33 Dose: 50 mg - Labs Labs: 09/30/17 07:36 09/30/17 07:36 PT 11.9 SECONDS (9.7-12.2) 09/27/17 10:07 INR 1.1 09/27/17 10:07 APTT 29 SECONDS (21-34) 09/27/17 10:07 - Constitutional Appears: No Acute Distress - Head Exam Head Exam: NORMOCEPHALIC - Eye Exam Eye Exam: Normal appearance Pupil Exam: NORMAL ACCOMODATION - ENT Exam ENT Exam: Normal Exam - Neck Exam Neck Exam: Normal Inspection - Respiratory Exam Respiratory Exam: Decreased Breath Sounds - Cardiovascular Exam Cardiovascular Exam: REGULAR RHYTHM - GI/Abdominal Exam GI & Abdominal Exam: Normal Bowel Sounds - Rectal Exam Rectal Exam: Deferred - Exam Exam: NORMAL INSPECTION - Extremities Exam Extremities Exam: Normal Inspection - Back Exam Back Exam: NORMAL INSPECTION - Neurological Exam Neurological Exam: Oriented x3 - Skin Skin Exam: Dry Assessment and Plan (1) Cellulitis Status: Acute (2) Bilateral edema of lower extremity Status: Acute (3) Constipation Status: Acute (4) Leg pain Status: Acute (5) Degenerative joint disease Status: Acute
--- NOTE | 2017-09-30 22:47 | CARD ---
APPROVED REPORT EKG Measurement Heart [id number] <Conclusion> Normal sinus rhythm Minimal voltage criteria for LVH, may be normal variant Borderline ECG
[2017-10-01] MEDS: Albuterol 0.083% Inhal Sol (2.5 mg/3 mL) UD INH SCH ×3 (01:01→13:35)
[2017-10-01 07:52] VITALS: BP 163/96; PULSE 74; TEMP 98.1; O2SAT 95
[2017-10-01 08:11] LABS: BASO # 0.1 K/uL (0.0-0.2); BASO % 0.6 % (0.0-2.0); EOS # 0.2 K/uL (0.0-0.7); EOS % 2.1 % (0.0-4.0); HEMOGLOBIN 13.4 g/dL (12.0-18.0); LYMPH # 1.9 K/uL (1.0-4.3); LYMPH % 16.7 % (20.0-40.0); MEAN CELL VOLUME 87.8 fL (80.0-94.0); MEAN CORPUSCULAR HGB CONC 34.2 g/dL (33.0-37.0); MONO # 0.9 K/uL (0.0-0.8); MONO % 7.8 % (0.0-10.0); NEUT # 8.4 K/uL (1.8-7.0); NEUT % 72.8 % (50.0-75.0); NRBC % 0.1 % (0.0-2.0); RBC 4.46 Mil/uL (4.40-5.90); RED CELL DISTRIBUTION WIDTH 13.7 % (11.5-14.5); WHITE BLOOD COUNT 11.6 K/uL (4.8-10.8)
--- NOTE | 2017-10-01 08:14 | CON ---
DATE: 09/30/2017 HISTORY OF PRESENT ILLNESS: This is a 42-year-old male with a history of obesity, asthma, as well as right knee replacement and left hip replacement, and history of arthritis, hypertension, and obesity. He is now admitted with increasing shortness of breath with no chest pain. He had cough with scanty yellow sputum with occasional chills, but no hemoptysis. He also developed right leg pain some weeks ago, went to his doctor and he was given antibiotics. Now he was admitted through emergency room with shortness of breath and leg edema with no chest pain. His venous Doppler after hospitalization was reported to show no evidence of deep vein thrombosis in the legs. SOCIAL HISTORY: He is a nonsmoker. Does not consume alcohol. ALLERGIES: HE IS NOT ALLERGIC TO MEDICATIONS. FAMILY HISTORY: He has a family history of hypertension. All his siblings are reported to be overweight. PAST MEDICAL HISTORY: As stated above. History of hypertension, asthma, right knee replacement, left replacement, arthritis, and disability. FAMILY HISTORY: History of obesity in siblings. His parents have not been obese. REVIEW OF SYSTEMS: There is no history of seizures. There is no history of thyroid disease. Cardiorespiratory: As stated above. GI: There is no vomiting. No abdominal pain. No diarrhea. No history of polyuria, dysuria, or other urinary symptoms. Musculoskeletal: He has history of arthritis and had hip and knee surgeries. PHYSICAL EXAMINATION: GENERAL: On examination, he is obese, alert, oriented, and febrile. VITAL SIGNS: Blood pressure 130/76, pulse 66, respirations 18, hemoglobin oxygen saturation of 94% on room air. NECK: Supple. There is no thyromegaly. HEENT: Unremarkable. There is no lymphadenopathy. HEART: Regular. There is no gallop or rhythm. LUNGS: Diminished breath sounds. Occasional rhonchi. ABDOMEN: Soft. EXTREMITIES: There is minimal leg swelling, ankle swelling, more on the right side than on the left side. There is no obvious motor deficit. Deep tendon reflexes are sluggish. LABORATORY DATA: His white count initially was high 18,700 and dropped down to 13,300 and now it is 10,300; hemoglobin 13; platelet count 284,000. Creatinine dropped down from 85 to 70. Latest ABG was down on room air on 09/28/2017, and this showed pH of 7.46, pCO2 of 49, and pO2 of 57 with hemoglobin oxygen saturation of 93%. His serum sodium is 139, potassium 4.2, chloride 92, BUN 14, creatinine 0.9. AST 28, ALT 19. Creatinine kinase is 639, troponin 0.046. Toxicology showed urine opiates positive. Chest x-ray showed poor inspiratory phase with prominent lung architecture and lab records and vascular congestion. Duplex Doppler of leg to rule out DVT which reported to show no evidence of DVT in the right or the left leg. IMPRESSION: Respiratory insufficiency, hypertensive cardiovascular disease, obesity hypoventilation, sleep apnea, arthritis, status post right knee replacement with left hip replacement, obesity and anxiety. Recommend sputum studies. Follow up chest x-ray, thyroid profile, cardiology followup, BiPAP therapy, and sleep medicine followup. Antibiotics for aspiration pneumonitis. Jefferson Johns MD
[2017-10-01 08:30] LABS: ALB/GLOB RATIO 1.2 (1.0-2.1); ALBUMIN 3.9 g/dL (3.5-5.0); ALT/SGPT 26 U/L (21-72); AST/SGOT 31 U/L (17-59); BLOOD UREA NITROGEN 15 mg/dL (9-20); CALCIUM 8.9 mg/dl (8.6-10.4); GFR AFRICAN-AMERICAN > 60; GFR NON-AFRICAN AMERICAN > 60
[2017-10-01] MEDS: Enoxaparin 30 mg Syringe SC SCH (10:06)
[2017-10-01] MEDS ORDERED: CEFAZOLIN IVPB SCH (12:00)
[2017-10-01] MEDS ORDERED: SODIUM CHLORIDE IVPB SCH (12:00)
--- NOTE | 2017-10-01 14:27 | CP.PCM.PN ---
Subjective - Date & Time of Evaluation Date of Evaluation: 10/01/17 Time of Evaluation: 14:26 - Subjective Subjective: PATIENT AAOX3 / DENIES CHEST PAIN/ SOB / NAUSEA OR VOMITING NO SIGN OF DISTRESS NOTED Objective - Vital Signs/Intake and Output Vital Signs (last 24 hours): Temp Pulse Resp BP Pulse Ox 98.1 F 74 20 163/96 H 95 10/01/17 07:51 10/01/17 07:51 10/01/17 07:51 10/01/17 07:51 10/01/17 07:51 - Medications Medications: Current Medications Acetaminophen (Tylenol 325mg Tab) 975 mg PO Q8 [facility] Last Admin: 10/01/17 13:50 Dose: 975 mg Albuterol Sulfate (Albuterol 0.083% Inhal Martha (2.5 Mg/3 Ml) Ud) 2.5 mg INH RQ6 [facility] Last Admin: 10/01/17 13:35 Dose: Not Given Enoxaparin Sodium (Lovenox) 30 mg SC DAILY [facility] Last Admin: 10/01/17 10:06 Dose: 30 mg Cefazolin Sodium 500 mg/ (Sodium Chloride) 100 mls @ 100 mls/hr IVPB Q8H [facility] PRN Reason: Protocol Last Admin: 10/01/17 12:43 Dose: 100 mls/hr Losartan Potassium (Cozaar) 50 mg PO DAILY [facility] Last Admin: 10/01/17 10:06 Dose: 50 mg - Labs Labs: 10/01/17 07:51 10/01/17 07:51 PT 11.9 SECONDS (9.7-12.2) 09/27/17 10:07 INR 1.1 09/27/17 10:07 APTT 29 SECONDS (21-34) 09/27/17 10:07 Assessment and Plan - Assessment and Plan (Free Text) Assessment: PATIENT SEEN AND EXAMINED AT THE BEDSIDE LUNG SOUND CLEAR REMINGTON REMINGTON LE SWOLLEN IMPROVE SIGNIFICANTLY AFEBRILE/ LAB WNL / VITAL SIGN STABLE ON BP MED CTA NEG FOR PE/ VENOUS DUPLEX LE IS NEG FOR DVT ECHO DONE AND NORMAL EF DISCUSS WITH DR WATSON WHO CLEAR FOR DC FOLLOW UP WITH DR WATSON AT HIS OFFICE 1-2 WEEK ---CALL FOR APPOINTMENT FOLLOW WITH DR REYES AND DR BRIGGS AT HIS OFFICE --CALL FOR APPOINTMENT CONTINUE ALL YOUR HOME MEDICATION NEW PRESCRIPTION GIVEN CEPHALEXIN 500 MG ONE TAB BY MOUTH EVERY 12 HOURS HTCZ 25 MG ONE TAB BY MOUTH LOSARTAN 50 MG ONE TAB BY MOUTH DAILY ACTIVITY TOLERATED CALL DR WATSON OR GO TO THE EMERGENCY ROOM IF SYMPTOMS RETURN OR WORSENING DISCUSS WITH PATIENT WHO AGREE AND VERBALIZED UNDERSTANDING
--- NOTE | 2017-10-01 23:05 | CP.PCM.DIS ---
Provider - Provider Date of Admission: 09/29/17 15:01 Attending physician: Fredrick Watson MD Time Spent in preparation of Discharge (in minutes): 24 Diagnosis - Discharge Diagnosis (1) Cellulitis Status: Acute (2) Bilateral edema of lower extremity Status: Acute (3) Constipation Status: Acute (4) Leg pain Status: Acute (5) Degenerative joint disease Status: Acute Hospital Course - Lab Results Lab Results: Micro Results 09/29/17 16:36 Sputum Gram Stain - Final 09/29/17 16:36 Sputum Sputum Culture - Final NORMAL ORAL SHER Most Recent Lab Values WBC 11.6 K/uL (4.8-10.8) H 10/01/17 07:51 RBC 4.46 Mil/uL (4.40-5.90) 10/01/17 07:51 Hgb 13.4 g/dL (12.0-18.0) 10/01/17 07:51 Hct 39.2 % (35.0-51.0) 10/01/17 07:51 MCV 87.8 fL (80.0-94.0) 10/01/17 07:51 MCH 30.0 pg (27.0-31.0) 10/01/17 07:51 MCHC 34.2 g/dL (33.0-37.0) 10/01/17 07:51 RDW 13.7 % (11.5-14.5) 10/01/17 07:51 Plt Count 307 K/uL (130-400) 10/01/17 07:51 MPV 7.0 fL (7.2-11.7) L 10/01/17 07:51 Neut % (Auto) 72.8 % (50.0-75.0) 10/01/17 07:51 Lymph % (Auto) 16.7 % (20.0-40.0) L 10/01/17 07:51 [place] % (Auto) 7.8 % (0.0-10.0) 10/01/17 07:51 Eos % (Auto) 2.1 % (0.0-4.0) 10/01/17 07:51 Baso % (Auto) 0.6 % (0.0-2.0) 10/01/17 07:51 Neut # (Auto) 8.4 K/uL (1.8-7.0) H 10/01/17 07:51 Lymph # (Auto) 1.9 K/uL (1.0-4.3) 10/01/17 07:51 [place] # (Auto) 0.9 K/uL (0.0-0.8) H 10/01/17 07:51 Eos # (Auto) 0.2 K/uL (0.0-0.7) 10/01/17 07:51 Baso # (Auto) 0.1 K/uL (0.0-0.2) 10/01/17 07:51 Neutrophils % (Manual) 82 % (50-75) H 09/28/17 12:00 Band Neutrophils % 4 % (0-2) H 09/28/17 12:00 Lymphocytes % (Manual) 5 % (20-40) L 09/28/17 12:00 Monocytes % (Manual) 8 % (0-10) 09/28/17 12:00 Myelocytes % 1 % (0-0) H 09/28/17 12:00 Platelet Estimate Normal (NORMAL) 09/28/17 12:00 PT 11.9 SECONDS (9.7-12.2) 09/27/17 10:07 INR 1.1 09/27/17 10:07 APTT 29 SECONDS (21-34) 09/27/17 10:07 Puncture Site Rra 09/28/17 14:16 pCO2 49 mm/Hg (35-45) H 09/28/17 14:16 pO2 57 mm/Hg (80-100) L 09/28/17 14:16 HCO3 32.2 mmol/L (21-28) H 09/28/17 14:16 ABG pH 7.46 (7.35-7.45) H 09/28/17 14:16 ABG Total CO2 36.3 mmol/L (22-28) H 09/28/17 14:16 ABG O2 Saturation 93.2 % (95-98) L 09/28/17 14:16 ABG Base Excess 9.5 mmol/L (-2.0-3.0) H 09/28/17 14:16 ABG Hemoglobin 12.5 g/dL (11.7-17.4) 09/28/17 14:16 ABG Carboxyhemoglobin 2.3 % (0.5-1.5) H 09/28/17 14:16 POC ABG HHb (Measured) 6.6 % (0.0-5.0) H 09/28/17 14:16 ABG Methemoglobin 0.8 % (0.0-3.0) 09/28/17 14:16 [place] Test Pos 09/28/17 14:16 A-a O2 Difference 31.0 mm/Hg 09/28/17 14:16 Respiratory Index 0.5 09/28/17 14:16 Hgb O2 Saturation 90.2 % (95.0-98.0) L 09/28/17 14:16 Liter Flow 2.0 09/27/17 18:53 FiO2 21.0 % 09/28/17 14:16 Sodium 139 mmol/L (132-148) 10/01/17 07:51 Potassium 3.8 mmol/L (3.6-5.2) 10/01/17 07:51 Chloride 95 mmol/L (98-107) L 10/01/17 07:51 Carbon Dioxide 34 mmol/L (22-30) H 10/01/17 07:51 Anion Gap 14 (10-20) 10/01/17 07:51 BUN 15 mg/dL (9-20) 10/01/17 07:51 Creatinine 0.7 mg/dL (0.8-1.5) L 10/01/17 07:51 Est GFR ( Amer) > 60 10/01/17 07:51 Est GFR (Non-Af Amer) > 60 10/01/17 07:51 Random Glucose 101 mg/dL (75-110) 10/01/17 07:51 Calcium 8.9 mg/dl (8.6-10.4) 10/01/17 07:51 Total Bilirubin 0.8 mg/dL (0.2-1.3) 10/01/17 07:51 AST 31 U/L (17-59) 10/01/17 07:51 ALT 26 U/L (21-72) 10/01/17 07:51 Alkaline Phosphatase 72 U/L (38-126) 10/01/17 07:51 Total Creatine Kinase 639 U/L (55-170) H 09/27/17 10:07 CK-MB (Mass) 11.1 ng/mL (0.0-3.38) H 09/27/17 10:07 Troponin I 0.0460 ng/mL (0.00-0.120) 09/27/17 10:07 NT-Pro-B Natriuret Pep 79.4 pg/mL (0-450) 09/27/17 10:07 Total Protein 7.2 g/dL (6.3-8.3) 10/01/17 07:51 Albumin 3.9 g/dL (3.5-5.0) 10/01/17 07:51 Globulin 3.2 gm/dL (2.2-3.9) 10/01/17 07:51 Albumin/Globulin Ratio 1.2 (1.0-2.1) 10/01/17 07:51 Free PSA 0.1 ng/mL 09/29/17 14:18 % Free PSA 25 % (calc) (>25) L 09/29/17 14:18 Total PSA 0.4 ng/mL (< or = 4.0) 09/29/17 14:18 Free T4 1.04 ng/dL (0.78-2.19) 09/30/17 15:58 TSH 3rd Generation 5.53 mIU/L (0.46-4.68) H 09/30/17 15:58 Urine Color Straw (YELLOW) 09/27/17 11:23 Urine Clarity Clear (Clear) 09/27/17 11:23 Urine pH 5.0 (5.0-8.0) 09/27/17 11:23 Ur Specific [place] 1.005 (1.003-1.030) 09/27/17 11:23 Urine Protein Negative mg/dL (NEGATIVE) 09/27/17 11:23 Urine Glucose (UA) Normal mg/dL (Normal) 09/27/17 11:23 Urine Ketones Negative mg/dL (NEGATIVE) 09/27/17 11:23 Urine Blood Negative (NEGATIVE) 09/27/17 11:23 Urine Nitrate Negative (NEGATIVE) 09/27/17 11:23 Urine Bilirubin Negative (NEGATIVE) 09/27/17 11:23 Urine Urobilinogen Normal mg/dL (0.2-1.0) 09/27/17 11:23 Ur Leukocyte Esterase Neg Joy/uL (Negative) 09/27/17 11:23 Urine WBC (Auto) < 1 /hpf (0-5) 09/27/17 11:23 Urine RBC (Auto) < 1 /hpf (0-3) 09/27/17 11:23 Urine Opiates Screen Positive (NEGATIVE) H 09/27/17 11:23 Urine Methadone Screen Negative (NEGATIVE) 09/27/17 11:23 Ur Barbiturates Screen Negative (NEGATIVE) 09/27/17 11:23 Ur Phencyclidine Scrn Negative (NEGATIVE) 09/27/17 11:23 Ur Amphetamines Screen Negative (NEGATIVE) 09/27/17 11:23 U Benzodiazepines Scrn Negative (NEGATIVE) 09/27/17 11:23 U Oth Cocaine Metabols Negative (NEGATIVE) 09/27/17 11:23 U Cannabinoids Screen Negative (NEGATIVE) 09/27/17 11:23 Discharge Exam - Head Exam Head Exam: NORMOCEPHALIC - Eye Exam Eye Exam: Normal appearance Pupil Exam: NORMAL ACCOMODATION - ENT Exam ENT Exam: Normal Exam - Neck Exam Neck exam: Normal Inspection - Respiratory Exam Respiratory Exam: Decreased Breath Sounds - Cardiovascular Exam Cardiovascular Exam: REGULAR RHYTHM - GI/Abdominal Exam GI & Abdominal Exam: Hyperactive Bowel Sounds - Rectal Exam Rectal Exam: Deferred - Exam Exam: NORMAL INSPECTION - Extremities Exam Extremities exam: pedal edema - Back Exam Back exam: NORMAL INSPECTION - Neurological Exam Neurological exam: Oriented x3 - Psychiatric Exam Psychiatric exam: Depressed - Skin Skin Exam: Dry Discharge Plan - Discharge Medications Prescriptions: Losartan [Cozaar] 50 mg PO DAILY 30 Days tab hydroCHLOROthiazide [Hydrodiuril] 25 mg PO DAILY 30 Days tab Cephalexin [Keflex] 500 mg PO Q12H 4 Days cap - Follow Up Plan Condition: STABLE Disposition: HOME/ ROUTINE Instructions: Asthma, Adult (DC), Osteoarthritis (DC), Dependent Edema (DC), Cephalexin, Hydrochlorothiazide, Losartan, Cellulitis (GEN) Additional Instructions: FOLLOW UP WITH DR WATSON AT HIS OFFICE 1-2 WEEK ---CALL FOR APPOINTMENT FOLLOW WITH DR JOHNS AND DR MOYA AT HIS OFFICE --CALL FOR APPOINTMENT CONTINUE ALL YOUR HOME MEDICATION NEW PRESCRIPTION GIVEN CEPHALEXIN 500 MG ONE TAB BY MOUTH EVERY 12 HOURS HTCZ 25 MG ONE TAB BY MOUTH LOSARTAN 50 MG ONE TAB BY MOUTH DAILY ACTIVITY TOLERATED CALL DR WATSON OR GO TO THE EMERGENCY ROOM IF SYMPTOMS RETURN OR WORSENING Referrals: Fredrick Watson MD [Staff Provider] - Gustavo Moya MD [Staff Provider] - Jefferson Johns MD [Staff Provider] -
--- NOTE | 2017-10-02 06:35 | PN ---
DATE: 10/01/2017 SUBJECTIVE: The patient declines to use BiPAP at night. He is not in acute distress at rest. His dyspnea has subsided. He continues to be on vasodilator and diuretics as per Cardiology. PHYSICAL EXAMINATION: GENERAL: The patient is alert, oriented. VITAL SIGNS: Afebrile with blood pressure 162/96, pulse 72, respirations 20, hemoglobin oxygen saturation of 95% on room air. HEART: Regular. There is no gallop rhythm. LUNGS: Diminished breath sounds over the lung bases. Rhonchi diminished. ABDOMEN: Soft LEGS: Diminished swelling. LABORATORY DATA: White count 11,600, hemoglobin , platelet count 307,000. Sodium 139, potassium 3.8, chloride 95, BUN 15, creatinine 0.7, glucose 101. CT angio is reported to show no evidence of pulmonary embolus, but it is reported to show ground glassing with air trapping in the lower lung areas and atelectasis. IMPRESSION: Respiratory insufficiency, asthma, chronic obstructive pulmonary disease, obstructive sleep apnea, obesity hypoventilation syndrome, hypertension, arthritis, and pneumonitis. PLAN: To continue with the current medications and current measures. Continue with incentive spirometry and continue to recommend BiPAP , and reduction in weight is also recommended. Continue with bronchodilators and oxygen therapy as required. Follow up with Cardiology. Jefferson Johns MD
== END 2017-10-01 15:05 | disposition home or self-care (01) | DRG 882 ==
LOC: C.ER 09:09 → C.9E 12:32 → C.5S 19:29 → OBSVTOIN 09-29 15:01
PROVIDERS: ADMIT Internal Medicine; ATTEND Internal Medicine
PROC: 5A1945Z Respiratory Ventilation, 24-96 Consecutive Hours (ICD-10-PCS; principal; 2017-09-29)
DX: J45.901 Unspecified asthma with (acute) exacerbation (principal); J69.0 Pneumonitis due to inhalation of food and vomit; L03.115 Cellulitis of right lower limb; E66.2 Morbid (severe) obesity with alveolar hypoventilation; G47.33 Obstructive sleep apnea (adult) (pediatric); I11.9 Hypertensive heart disease without heart failure; K21.9 Gastro-esophageal reflux disease without esophagitis; K59.00 Constipation, unspecified; M19.90 Unspecified osteoarthritis, unspecified site; F17.210 Nicotine dependence, cigarettes, uncomplicated; Z96.642 Presence of left artificial hip joint; Z96.653 Presence of artificial knee joint, bilateral; Z68.43 Body mass index [BMI] 50.0-59.9, adult

== ENCOUNTER 2017-10-29 01:35 | Inpatient (IN) | payer OTHER ==
--- NOTE | 2017-10-29 02:40 | C.PDOC ---
History Of Present Illness Patient presents to the ER with a complaint of leg pain and swelling for the past 2 days. Patient states his right leg is always bigger than the left due to multiple orthopedic surgeries. Patient seems very somnolent, when awoken he states he has pain and falls back asleep. Denies , fever, or chills. States he cannot ambulate due to pain and swelling.No chest pain or palpitations Time Seen by Provider: 10/29/17 02:39 Chief Complaint (Nursing): Lower Extremity Problem/Injury History Per: Patient History/Exam Limitations: no limitations Onset/Duration Of Symptoms: Days Current Symptoms Are (Timing): Still Present Severity: Moderate Pain Scale Rating Of: 4 Recent travel outside of the [place]: No Additional History Per: Patient Past Medical History Reviewed: Historical Data, Nursing Documentation, Vital Signs Vital Signs: Last Vital Signs Temp 98.6 F 10/29/17 01:40 Pulse 78 10/29/17 01:40 Resp 20 10/29/17 01:40 BP 161/64 H 10/29/17 01:40 Pulse Ox 92 L 10/29/17 03:33 - Medical History PMH: Arthritis, Asthma, Depression, HTN - [facility] Procedures RESPIRATORY VENTILATION, 24-96 CONSECUTIVE HOURS (09/29/17) Family History: States: Unknown Family Hx - Social History Hx Alcohol Use: No Hx Substance Use: No (denies) - Immunization History Hx Tetanus Toxoid Vaccination: No Hx Influenza Vaccination: No Hx Pneumococcal Vaccination: No Review Of Systems Constitutional: Negative for: Fever, Chills Cardiovascular: Negative for: Chest Pain, Palpitations Respiratory: Positive for: Shortness of Breath. Negative for: Cough Gastrointestinal: Negative for: Nausea, Vomiting Musculoskeletal: Positive for: Leg Pain (w/ swelling) Skin: Positive for: Rash Neurological: Positive for: Altered Mental Status Psych: Negative for: Anxiety Physical Exam - Physical Exam Appears: Non-toxic, Other (Morbidly obese) Skin: Warm, Dry Head: Normacephalic Eye(s): bilateral: Normal Inspection Oral Mucosa: Moist Neck: Supple Chest: Symmetrical, No Tenderness Cardiovascular: Rhythm Regular Respiratory: Decreased Breath Sounds (Difficult to assess due to patient being morbidly obese), No Rales, Rhonchi, No Wheezing Gastrointestinal/Abdominal: Soft, No Tenderness, Other (Obese) Back: Normal Inspection Extremity: Pedal Edema (Right greater than left), Capillary Refill (<2 seconds) , Other (No increased warmth over lower extremities) Extremity: Bilateral: Painful To Bear Weight Pulses: Left Dorsalis Pedis: Normal, Right Dorsalis Pedis: Normal Neurological/Psych: Oriented x3 Gait: With Assistance ED Course And Treatment - Laboratory Results Result Diagrams: 10/29/17 03:58 10/29/17 03:58 ECG: Interpreted By Me, Viewed By Me ECG Rhythm: Sinus Rhythm (61), Nonspecific Changes O2 Sat by Pulse Oximetry: 92 (Room air) Pulse Ox Interpretation: Abnormal - Radiology CXR: Interpreted by Me, Viewed By Me CXR Interpretation: No: Infiltrates, Fracture, Pnemothorax Progress Note: Blood work, EKG, CXR, and urinalysis ordered. Disposition Discussed With Dr.: Fredrick Kumar Comment: accepted the pt on his service and took over the care at 6 AM Doctor Will See Patient In The: Hospital Counseled Patient/Family Regarding: Studies Performed, Diagnosis - Disposition Disposition: HOSPITALIZED Disposition Time: 02:40 Condition: FAIR Forms: [employer] (Vietnamese) - Clinical Impression Clinical Impression: Leg pain, Bilateral edema of lower extremity, Hypoxia, Ambulatory dysfunction - Scribe Statement The provider has reviewed the documentation as recorded by the Scribe Johnny Patel All medical record entries made by the Scribe were at my direction and personally dictated by me. I have reviewed the chart and agree that the record accurately reflects my personal performance of the history, physical exam, medical decision making, and the department course for this patient. I have also personally directed, reviewed, and agree with the discharge instructions and disposition. Decision To Admit - Pt Status Changed To: Hospital Disposition Of: Observation - . Bed Request Type: Telemetry Admitting Physician: Fredrick Kumar Patient Diagnosis: Leg pain, Bilateral edema of lower extremity, Hypoxia, Ambulatory dysfunction
[2017-10-29 03:52] LABS: ABG ALLEN TEST POS; ARTERIAL BLOOD GAS HCO3 28.2 mmol/L (21-28); ARTERIAL BLOOD GAS PCO2 57 mm/Hg (35-45); ARTERIAL BLOOD GAS PH 7.35 (7.35-7.45); ARTERIAL BLOOD GAS PO2 76 mm/Hg (80-100); ARTERIAL BLOOD GAS TCO2 33.2 mmol/L (22-28)
[2017-10-29 04:05] LABS: BASO # 0.1 K/uL (0.0-0.2); EOS # 0.5 K/uL (0.0-0.7); EOS % 3.9 % (0.0-4.0); LYMPH # 1.7 K/uL (1.0-4.3); LYMPH % 14.7 % (20.0-40.0); MEAN CELL VOLUME 88.7 fL (80.0-94.0); MEAN CORPUSCULAR HEMOGLOBIN 29.8 pg (27.0-31.0); MEAN CORPUSCULAR HGB CONC 33.6 g/dL (33.0-37.0); MEAN PLATELET VOLUME 6.8 fL (7.2-11.7); MONO % 8.6 % (0.0-10.0); NEUT # 8.4 K/uL (1.8-7.0); NEUT % 71.8 % (50.0-75.0); NRBC % 0.1 % (0.0-2.0); RBC 4.02 Mil/uL (4.40-5.90); RED CELL DISTRIBUTION WIDTH 13.6 % (11.5-14.5); WHITE BLOOD COUNT 11.8 K/uL (4.8-10.8)
[2017-10-29 04:09] LABS: INR 1.1; PROTHROMBIN TIME 11.5 SECONDS (9.7-12.2)
[2017-10-29 04:15] LABS: ALB/GLOB RATIO 1.2 (1.0-2.1); ALBUMIN 3.9 g/dL (3.5-5.0); ALT/SGPT 29 U/L (21-72); AST/SGOT 36 U/L (17-59); BLOOD UREA NITROGEN 15 mg/dL (9-20); CALCIUM 8.5 mg/dl (8.6-10.4); GFR AFRICAN-AMERICAN > 60; GFR NON-AFRICAN AMERICAN > 60
[2017-10-29 04:22] LABS: B-TYPE NATRIURETIC PEPTIDE 288 pg/mL (0-450)
--- NOTE | 2017-10-29 09:17 | RAD ---
Date of service: 10/29/2017 PROCEDURE: CHEST RADIOGRAPH, 1 VIEW HISTORY: SOB COMPARISON: 09/27/2017 FINDINGS: LUNGS: Perihilar peribronchial cuffing - mild pulmonary venous congestion noted. No consolidation PLEURA: No pneumothorax or pleural fluid seen. CARDIOVASCULAR: Borderline cardiomegaly. Mild pulmonary venous congestion -increased since prior exam. OSSEOUS STRUCTURES: Thoracic spondylosis. Otherwise unremarkable -as visualized VISUALIZED UPPER ABDOMEN: Normal. OTHER FINDINGS: Large body habitus IMPRESSION: Interval mild pulmonary venous congestion. Borderline cardiomegaly
[2017-10-29 11:34] LABS: URINE BILIRUBIN NEGATIVE (NEGATIVE); URINE CLARITY Clear (Clear); URINE COLOR Yellow (YELLOW); URINE GLUCOSE (UA) NORMAL (Normal); URINE LEUKOCYTE ESTERASE NEG Leu/uL (Negative); URINE PROTEIN 1+ mg/dL (NEGATIVE)
[2017-10-29 11:35] LABS: URINE BLOOD 1+ (NEGATIVE)
[2017-10-29 11:54] LABS: BARBITURATES, UR NEGATIVE (NEGATIVE); BENZODIAZEPINES, UR NEGATIVE (NEGATIVE); PHENCYCLIDINE, UR NEGATIVE (NEGATIVE)
[2017-10-29 12:14] LABS: OPIATES, UR POSITIVE (NEGATIVE)
--- NOTE | 2017-10-29 14:37 | VASCLAB ---
Date of service: 10/29/2017 PROCEDURE: Right Lower Extremity Venous Duplex Exam. HISTORY: Right calf pain and swelling PRIORS: None. TECHNIQUE: Right common femoral, femoral, popliteal and posterior tibial, peroneal and great saphenous veins were evaluated. Flow was assessed with color Doppler, compressibility, assessment of phasic flow and augmentation response. Report prepared by ABHAY Palmer, RVT FINDINGS: RIGHT: 1. Common Femoral Vein: 1.1. Compressibility - Fully compressible: Thrombus - None: Flow - Phasic: Augmentation -Normal: Reflux - None. 2. Femoral Vein: 2.1. Compressibility - Fully compressible: Thrombus - None: Flow - Phasic: Augmentation -Normal: Reflux - None. 3. Popliteal Vein: 3.1. Compressibility - Fully compressible: Thrombus - None: Flow - Phasic: Augmentation -Normal: Reflux - None. 4. Posterior Tibial Vein: 4.1. Compressibility - Fully compressible: Thrombus - None: Flow - Phasic: Augmentation -Normal: Reflux - None. 5. Peroneal Vein: 5.1. Compressibility - Fully compressible: Thrombus - None: Flow - Phasic: Augmentation -Normal: Reflux - Severe >3.20s 6. Great Saphenous Vein: 6.1. Compressibility - Fully compressible: Thrombus -None: Flow - Phasic: Augmentation - Normal: Reflux - None. OTHER FINDINGS: IMPRESSION: No evidence of deep or superficial vein thrombosis of the right lower extremity with excellent venous flow. Valvular incompetence noted of the right peroneal vein. Normal venous flow noted in the left common femoral vein.
--- NOTE | 2017-10-29 22:40 | CP.PCM.HP ---
History of Present Illness - History of Present Illness History of Present Illness: Patient seen in ER at [facility] complaining of pain and swelling of the right leg for the past two days. He has difficulty ambulating and is very sonulent. Patient was admitted for observation. Present on Admission - Present on Admission Any Indicators Present on Admission: No History of DVT/PE: No History of Uncontrolled Diabetes: No Urinary Catheter: No Decubitus Ulcer Present: No History Surgical Site Infection Following: None Review of Systems - Constitutional Constitutional: Fatigue - EENT Eyes: Dry Eye Nose/Mouth/Throat: Nasal Congestion - Cardiovascular Cardiovascular: Leg Edema - Respiratory Respiratory: Dyspnea on Exertion - Gastrointestinal Gastrointestinal: Belching - Musculoskeletal Musculoskeletal: Arthralgias, Stiffness - Integumentary Integumentary: Dry Skin - Neurological Neurological: Abnormal Gait - Psychiatric Psychiatric: Depression Past Patient History - Infectious Disease Hx of Infectious Diseases: None - Tetanus Immunizations Tetanus Immunization: Unknown, Up to Date - Past Medical History & Family History Past Medical History?: Yes - Past Social History Smoking Status: Light Smoker < 10 Cigarettes Daily Chewing Tobacco Use: No Cigar Use: No Alcohol: None Drugs: Denies Home Situation {Lives}: Alone - CARDIAC Hx Hypertension: Yes - PULMONARY Hx Asthma: Yes - NEUROLOGICAL Hx Dizziness: Yes - MUSCULOSKELETAL/RHEUMATOLOGICAL Hx Arthritis: Yes Hx Back Pain: Yes - GASTROINTESTINAL Hx Constipation: Yes Hx Diverticulitis: No - PSYCHIATRIC Hx Depression: Yes Hx Substance Use: No (denies) - SURGICAL HISTORY Hx Surgeries: Yes Hx Orthopedic Surgery: Yes (L hip/ R knee surgery) Other/Comment: Rt. knee x4 rep., Lt. hip rep. - ANESTHESIA Hx Anesthesia: Yes Hx Anesthesia Reactions: No Has any member of the family had a problem w/ anesthesia?: No Meds Allergies/Adverse Reactions: Allergies Allergy/AdvReac Type Severity Reaction Status Date / Time No Known Allergies Allergy Verified 09/27/17 09:30 Physical Exam - Constitutional Appears: Older Than Stated Age, Chronically Ill - Head Exam Head Exam: NORMOCEPHALIC - Eye Exam Eye Exam: Normal appearance Pupil Exam: NORMAL ACCOMODATION - ENT Exam ENT Exam: Normal Exam - Neck Exam Neck exam: Positive for: Normal Inspection - Respiratory Exam Respiratory Exam: Decreased Breath Sounds - Cardiovascular Exam Cardiovascular Exam: REGULAR RHYTHM - GI/Abdominal Exam GI & Abdominal Exam: Hyperactive Bowel Sounds - Rectal Exam Rectal Exam: Deferred - Exam Exam: NORMAL INSPECTION - Extremities Exam Extremities exam: Positive for: joint swelling - Back Exam Back exam: NORMAL INSPECTION - Neurological Exam Neurological exam: Altered - Psychiatric Exam Psychiatric exam: Depressed - Skin Skin Exam: Dry Results - Vital Signs Recent Vital Signs: Last Vital Signs Temp 98.6 F 10/29/17 15:00 Pulse 72 10/29/17 16:00 Resp 20 10/29/17 15:00 BP 153/83 H 10/29/17 15:00 Pulse Ox 100 10/29/17 15:00 - Labs Result Diagrams: 10/29/17 03:58 10/29/17 03:58 Labs: Laboratory Results - last 24 hr 10/29/17 10/29/17 10/29/17 03:40 03:58 03:58 WBC 11.8 H RBC 4.02 L Hgb 12.0 Hct 35.7 MCV 88.7 MCH 29.8 MCHC 33.6 RDW 13.6 Plt Count 298 MPV 6.8 L Neut % (Auto) 71.8 Lymph % (Auto) 14.7 L [place] % (Auto) 8.6 Eos % (Auto) 3.9 Baso % (Auto) 1.0 Neut # (Auto) 8.4 H Lymph # (Auto) 1.7 [place] # (Auto) 1.0 H Eos # (Auto) 0.5 Baso # (Auto) 0.1 PT INR APTT Puncture Site Rr pCO2 57 H pO2 76 L HCO3 28.2 H ABG pH 7.35 ABG Total CO2 33.2 H ABG O2 Saturation 97.0 ABG Base Excess 4.3 H Gasper Test Pos ABG Potassium 3.1 L A-a O2 Difference 52.0 Respiratory Index 0.7 Sodium 138.0 140 Chloride 101.0 100 Glucose 140 H Lactate 1.2 Liter Flow 2.0 Vent Mode Nasal cannla FiO2 28.0 Potassium 3.7 Carbon Dioxide 29 Anion Gap 15 BUN 15 Creatinine 0.7 L Est GFR ( Amer) > 60 Est GFR (Non-Af Amer) > 60 Random Glucose 136 H Calcium 8.5 L Total Bilirubin 0.6 AST 36 ALT 29 Alkaline Phosphatase 80 Troponin I NT-Pro-B Natriuret Pep 288 Total Protein 7.1 Albumin 3.9 Globulin 3.2 Albumin/Globulin Ratio 1.2 Arterial Blood Potassium 3.1 L Urine Color Urine Clarity Urine pH Ur Specific [place] Urine Protein Urine Glucose (UA) Urine Ketones Urine Blood Urine Nitrate Urine Bilirubin Urine Urobilinogen Ur Leukocyte Esterase Urine WBC (Auto) Urine RBC (Auto) Urine Opiates Screen Urine Methadone Screen Ur Barbiturates Screen Ur Phencyclidine Scrn Ur Amphetamines Screen U Benzodiazepines Scrn U Oth Cocaine Metabols U Cannabinoids Screen 10/29/17 10/29/17 10/29/17 03:58 04:45 11:25 WBC RBC Hgb Hct MCV MCH MCHC RDW Plt Count MPV Neut % (Auto) Lymph % (Auto) [place] % (Auto) Eos % (Auto) Baso % (Auto) Neut # (Auto) Lymph # (Auto) [place] # (Auto) Eos # (Auto) Baso # (Auto) PT 11.5 INR 1.1 APTT 29 Puncture Site pCO2 pO2 HCO3 ABG pH ABG Total CO2 ABG O2 Saturation ABG Base Excess Gas[place] Test ABG Potassium A-a O2 Difference Respiratory Index Sodium Chloride Glucose Lactate Liter Flow Vent Mode FiO2 Potassium Carbon Dioxide Anion Gap BUN Creatinine Est GFR ( Amer) Est GFR (Non-Af Amer) Random Glucose Calcium Total Bilirubin AST ALT Alkaline Phosphatase Troponin I 0.0220 NT-Pro-B Natriuret Pep Total Protein Albumin Globulin Albumin/Globulin Ratio Arterial Blood Potassium Urine Color Yellow Urine Clarity Clear Urine pH 5.0 Ur Specific [place] 1.023 Urine Protein 1+ H Urine Glucose (UA) Normal Urine Ketones Negative Urine Blood 1+ H Urine Nitrate Negative Urine Bilirubin Negative Urine Urobilinogen 2.0 Ur Leukocyte Esterase Neg Urine WBC (Auto) 2 Urine RBC (Auto) 15 H Urine Opiates Screen Urine Methadone Screen Ur Barbiturates Screen Ur Phencyclidine Scrn Ur Amphetamines Screen U Benzodiazepines Scrn U Oth Cocaine Metabols U Cannabinoids Screen 10/29/17 11:25 WBC RBC Hgb Hct MCV MCH MCHC RDW Plt Count MPV Neut % (Auto) Lymph % (Auto) [place] % (Auto) Eos % (Auto) Baso % (Auto) Neut # (Auto) Lymph # (Auto) [place] # (Auto) Eos # (Auto) Baso # (Auto) PT INR APTT Puncture Site pCO2 pO2 HCO3 ABG pH ABG Total CO2 ABG O2 Saturation ABG Base Excess Gas[place] Test ABG Potassium A-a O2 Difference Respiratory Index Sodium Chloride Glucose Lactate Liter Flow Vent Mode FiO2 Potassium Carbon Dioxide Anion Gap BUN Creatinine Est GFR ( Amer) Est GFR (Non-Af Amer) Random Glucose Calcium Total Bilirubin AST ALT Alkaline Phosphatase Troponin I NT-Pro-B Natriuret Pep Total Protein Albumin Globulin Albumin/Globulin Ratio Arterial Blood Potassium Urine Color Urine Clarity Urine pH Ur Specific [place] Urine Protein Urine Glucose (UA) Urine Ketones Urine Blood Urine Nitrate Urine Bilirubin Urine Urobilinogen Ur Leukocyte Esterase Urine WBC (Auto) Urine RBC (Auto) Urine Opiates Screen Positive H Urine Methadone Screen Negative Ur Barbiturates Screen Negative Ur Phencyclidine Scrn Negative Ur Amphetamines Screen Negative U Benzodiazepines Scrn Negative U Oth Cocaine Metabols Negative U Cannabinoids Screen Negative Assessment & Plan (1) Congestive heart failure Status: Acute (2) Ambulatory dysfunction Status: Acute (3) Hypoxia Status: Acute (4) Cellulitis Status: Acute (5) Degenerative joint disease Status: Acute
--- NOTE | 2017-10-29 23:51 | CP.PCM.CON ---
History of Present Illness - History of Present Illness History of Present Illness: 47 years old male complaining of swelling and pain of both lower legs for the past 2-3 days, Patient denies any fever, any trauma. Last month, he was hospitalized for the same problem, At that time, a Duplex venous scan of the lower extremities was negative for acute DVT, and an echocardiogram revealed normal systolic LV function. The patient was treated for a cellulitis of the lower extremities. Review of Systems - Cardiovascular Cardiovascular: Leg Edema - Musculoskeletal Additional comments: Swelling and painful lower extremities. - Integumentary Integumentary: Erythema Additional comments: Erythema of the lower extremities. - Psychiatric Psychiatric: Anxiety Past Patient History - Infectious Disease Hx of Infectious Diseases: None - Tetanus Immunizations Tetanus Immunization: Unknown, Up to Date - Past Medical History & Family History Past Medical History?: Yes - Past Social History Smoking Status: Light Smoker < 10 Cigarettes Daily Chewing Tobacco Use: No Cigar Use: No Alcohol: None Drugs: Denies Home Situation {Lives}: Alone - CARDIAC Hx Hypertension: Yes - PULMONARY Hx Asthma: Yes - NEUROLOGICAL Hx Dizziness: Yes - INTEGUMENTARY Hx Cellulitis: Yes - MUSCULOSKELETAL/RHEUMATOLOGICAL Hx Arthritis: Yes Hx Back Pain: Yes - GASTROINTESTINAL Hx Constipation: Yes Hx Diverticulitis: No - PSYCHIATRIC Hx Depression: Yes Hx Substance Use: No (denies) - SURGICAL HISTORY Hx Surgeries: Yes Hx Orthopedic Surgery: Yes (L hip/ R knee surgery) Other/Comment: Rt. knee x4 rep., Lt. hip rep. - ANESTHESIA Hx Anesthesia: Yes Hx Anesthesia Reactions: No Has any member of the family had a problem w/ anesthesia?: No Meds Allergies/Adverse Reactions: Allergies Allergy/AdvReac Type Severity Reaction Status Date / Time No Known Allergies Allergy Verified 09/27/17 09:30 - Medications Medications: Current Medications Acetaminophen (Tylenol 325mg Tab) 650 mg PO Q6 PRN PRN Reason: Pain, moderate (4-7) Enoxaparin Sodium (Lovenox) 40 mg SC DAILY [facility] Losartan Potassium (Cozaar) 50 mg PO DAILY [facility] Last Admin: 10/29/17 10:34 Dose: 50 mg Physical Exam - Constitutional Appears: No Acute Distress - Head Exam Head Exam: NORMAL INSPECTION - Eye Exam Eye Exam: Normal appearance - ENT Exam ENT Exam: Normal Exam - Neck Exam Neck exam: Positive for: Normal Inspection - Respiratory Exam Respiratory Exam: Clear to Auscultation Bilateral - Cardiovascular Exam Cardiovascular Exam: REGULAR RHYTHM - GI/Abdominal Exam GI & Abdominal Exam: Normal Bowel Sounds, Soft - Rectal Exam Rectal Exam: Deferred - Extremities Exam Extremities exam: Positive for: pedal edema, tenderness - Back Exam Back exam: NORMAL INSPECTION - Neurological Exam Neurological exam: Alert, Oriented x3 - Psychiatric Exam Psychiatric exam: Anxious - Skin Skin Exam: Rash Results - Vital Signs Recent Vital Signs: Last Vital Signs Temp 98.6 F 10/29/17 15:00 Pulse 72 10/29/17 16:00 Resp 20 10/29/17 15:00 BP 153/83 H 10/29/17 15:00 Pulse Ox 100 10/29/17 15:00 - Labs Result Diagrams: 10/29/17 03:58 10/29/17 03:58 Labs: Laboratory Results - last 24 hr 10/29/17 10/29/17 10/29/17 03:40 03:58 03:58 WBC 11.8 H RBC 4.02 L Hgb 12.0 Hct 35.7 MCV 88.7 MCH 29.8 MCHC 33.6 RDW 13.6 Plt Count 298 MPV 6.8 L Neut % (Auto) 71.8 Lymph % (Auto) 14.7 L [place] % (Auto) 8.6 Eos % (Auto) 3.9 Baso % (Auto) 1.0 Neut # (Auto) 8.4 H Lymph # (Auto) 1.7 [place] # (Auto) 1.0 H Eos # (Auto) 0.5 Baso # (Auto) 0.1 PT INR APTT Puncture Site Rr pCO2 57 H pO2 76 L HCO3 28.2 H ABG pH 7.35 ABG Total CO2 33.2 H ABG O2 Saturation 97.0 ABG Base Excess 4.3 H Gasper Test Pos ABG Potassium 3.1 L A-a O2 Difference 52.0 Respiratory Index 0.7 Sodium 138.0 140 Chloride 101.0 100 Glucose 140 H Lactate 1.2 Liter Flow 2.0 Vent Mode Nasal cannla FiO2 28.0 Potassium 3.7 Carbon Dioxide 29 Anion Gap 15 BUN 15 Creatinine 0.7 L Est GFR ( Amer) > 60 Est GFR (Non-Af Amer) > 60 Random Glucose 136 H Calcium 8.5 L Total Bilirubin 0.6 AST 36 ALT 29 Alkaline Phosphatase 80 Troponin I NT-Pro-B Natriuret Pep 288 Total Protein 7.1 Albumin 3.9 Globulin 3.2 Albumin/Globulin Ratio 1.2 Arterial Blood Potassium 3.1 L Urine Color Urine Clarity Urine pH Ur Specific [place] Urine Protein Urine Glucose (UA) Urine Ketones Urine Blood Urine Nitrate Urine Bilirubin Urine Urobilinogen Ur Leukocyte Esterase Urine WBC (Auto) Urine RBC (Auto) Urine Opiates Screen Urine Methadone Screen Ur Barbiturates Screen Ur Phencyclidine Scrn Ur Amphetamines Screen U Benzodiazepines Scrn U Oth Cocaine Metabols U Cannabinoids Screen 10/29/17 10/29/17 10/29/17 03:58 04:45 11:25 WBC RBC Hgb Hct MCV MCH MCHC RDW Plt Count MPV Neut % (Auto) Lymph % (Auto) [place] % (Auto) Eos % (Auto) Baso % (Auto) Neut # (Auto) Lymph # (Auto) [place] # (Auto) Eos # (Auto) Baso # (Auto) PT 11.5 INR 1.1 APTT 29 Puncture Site pCO2 pO2 HCO3 ABG pH ABG Total CO2 ABG O2 Saturation ABG Base Excess [place] Test ABG Potassium A-a O2 Difference Respiratory Index Sodium Chloride Glucose Lactate Liter Flow Vent Mode FiO2 Potassium Carbon Dioxide Anion Gap BUN Creatinine Est GFR ( Amer) Est GFR (Non-Af Amer) Random Glucose Calcium Total Bilirubin AST ALT Alkaline Phosphatase Troponin I 0.0220 NT-Pro-B Natriuret Pep Total Protein Albumin Globulin Albumin/Globulin Ratio Arterial Blood Potassium Urine Color Yellow Urine Clarity Clear Urine pH 5.0 Ur Specific [place] 1.023 Urine Protein 1+ H Urine Glucose (UA) Normal Urine Ketones Negative Urine Blood 1+ H Urine Nitrate Negative Urine Bilirubin Negative Urine Urobilinogen 2.0 Ur Leukocyte Esterase Neg Urine WBC (Auto) 2 Urine RBC (Auto) 15 H Urine Opiates Screen Urine Methadone Screen Ur Barbiturates Screen Ur Phencyclidine Scrn Ur Amphetamines Screen U Benzodiazepines Scrn U Oth Cocaine Metabols U Cannabinoids Screen 10/29/17 11:25 WBC RBC Hgb Hct MCV MCH MCHC RDW Plt Count MPV Neut % (Auto) Lymph % (Auto) [place] % (Auto) Eos % (Auto) Baso % (Auto) Neut # (Auto) Lymph # (Auto) [place] # (Auto) Eos # (Auto) Baso # (Auto) PT INR APTT Puncture Site pCO2 pO2 HCO3 ABG pH ABG Total CO2 ABG O2 Saturation ABG Base Excess [place] Test ABG Potassium A-a O2 Difference Respiratory Index Sodium Chloride Glucose Lactate Liter Flow Vent Mode FiO2 Potassium Carbon Dioxide Anion Gap BUN Creatinine Est GFR ( Amer) Est GFR (Non-Af Amer) Random Glucose Calcium Total Bilirubin AST ALT Alkaline Phosphatase Troponin I NT-Pro-B Natriuret Pep Total Protein Albumin Globulin Albumin/Globulin Ratio Arterial Blood Potassium Urine Color Urine Clarity Urine pH Ur Specific [place] Urine Protein Urine Glucose (UA) Urine Ketones Urine Blood Urine Nitrate Urine Bilirubin Urine Urobilinogen Ur Leukocyte Esterase Urine WBC (Auto) Urine RBC (Auto) Urine Opiates Screen Positive H Urine Methadone Screen Negative Ur Barbiturates Screen Negative Ur Phencyclidine Scrn Negative Ur Amphetamines Screen Negative U Benzodiazepines Scrn Negative U Oth Cocaine Metabols Negative U Cannabinoids Screen Negative Assessment & Plan (1) Cellulitis of both lower extremities Assessment and Plan: IV antibiotic Status: Acute
[2017-10-30] MEDS: ceFAZolin IV 1 gm in Dextrose 1 GM/50 ML BAG IVPB SCH ×3 (01:05→15:40)
[2017-10-30 07:59] LABS: BASO # 0.1 K/uL (0.0-0.2); BASO % 0.7 % (0.0-2.0); EOS # 0.3 K/uL (0.0-0.7); EOS % 2.7 % (0.0-4.0); HEMOGLOBIN 11.5 g/dL (12.0-18.0); LYMPH # 1.9 K/uL (1.0-4.3); LYMPH % 17.6 % (20.0-40.0); MEAN CELL VOLUME 87.8 fL (80.0-94.0); MEAN CORPUSCULAR HEMOGLOBIN 29.9 pg (27.0-31.0); MEAN CORPUSCULAR HGB CONC 34.1 g/dL (33.0-37.0); MEAN PLATELET VOLUME 6.9 fL (7.2-11.7); MONO # 0.9 K/uL (0.0-0.8); MONO % 7.9 % (0.0-10.0); NEUT # 7.8 K/uL (1.8-7.0); NEUT % 71.1 % (50.0-75.0); RBC 3.83 Mil/uL (4.40-5.90); RED CELL DISTRIBUTION WIDTH 13.9 % (11.5-14.5)
[2017-10-30] MEDS ORDERED: Potassium Chloride 20 mEq ER Tab PO ONE (10:00)
[2017-10-30] MEDS: Enoxaparin 40 mg Syringe SC SCH (10:39)
--- NOTE | 2017-10-30 11:56 | CARD ---
APPROVED REPORT Date of service: 10/29/2017 EKG Measurement Heart [id number] <Conclusion> Normal sinus rhythm Minimal voltage criteria for LVH, may be normal variant Borderline ECG
--- NOTE | 2017-10-30 22:56 | CP.PCM.PN ---
Subjective - Date & Time of Evaluation Date of Evaluation: 10/30/17 Time of Evaluation: 13:25 - Subjective Subjective: Patient complains of shortness of breath. Lower extremities edematous. Doppler of the lower extremities negative. Patient evaluated by Dr Moya. Objective - Vital Signs/Intake and Output Vital Signs (last 24 hours): Temp Pulse Resp BP Pulse Ox 98.2 F 77 20 153/96 H 94 L 10/30/17 14:00 10/30/17 16:00 10/30/17 14:00 10/30/17 17:40 10/30/17 14:00 Intake and Output: 10/30/17 10/31/17 18:59 06:59 Intake Total 400 480 Balance 400 480 - Medications Medications: Current Medications Acetaminophen (Tylenol 325mg Tab) 650 mg PO Q6 PRN PRN Reason: Pain, moderate (4-7) Enoxaparin Sodium (Lovenox) 40 mg SC DAILY [facility] Last Admin: 10/30/17 10:39 Dose: 40 mg Furosemide (Lasix) 40 mg IVP BID [facility] Last Admin: 10/30/17 17:40 Dose: 40 mg Cefazolin Sodium/Dextrose (Ancef Iv 1 Gm Duplex) 1 gm in 50 mls @ 100 mls/hr IVPB Q8H [facility] PRN Reason: Protocol Last Admin: 10/30/17 15:40 Dose: 100 mls/hr Losartan Potassium (Cozaar) 50 mg PO DAILY [facility] Last Admin: 10/30/17 10:40 Dose: 50 mg Potassium Chloride (K-Dur 20 Meq Er Tab) 20 meq PO DAILY [facility] Stop: 11/03/17 10:01 - Labs Labs: 10/30/17 07:44 10/30/17 07:44 PT 11.5 SECONDS (9.7-12.2) 10/29/17 03:58 INR 1.1 10/29/17 03:58 APTT 29 SECONDS (21-34) 10/29/17 03:58 - Constitutional Appears: No Acute Distress - Head Exam Head Exam: NORMOCEPHALIC - Eye Exam Eye Exam: Normal appearance Pupil Exam: NORMAL ACCOMODATION - ENT Exam ENT Exam: Normal Exam - Neck Exam Neck Exam: Normal Inspection - Respiratory Exam Respiratory Exam: Decreased Breath Sounds - Cardiovascular Exam Cardiovascular Exam: REGULAR RHYTHM - GI/Abdominal Exam GI & Abdominal Exam: Hyperactive Bowel Sounds - Rectal Exam Rectal Exam: Deferred - Exam Exam: NORMAL INSPECTION - Extremities Exam Extremities Exam: Pedal Edema - Back Exam Back Exam: NORMAL INSPECTION - Neurological Exam Neurological Exam: Oriented x3 - Psychiatric Exam Psychiatric exam: Depressed - Skin Skin Exam: Dry Assessment and Plan (1) Congestive heart failure Status: Acute (2) Ambulatory dysfunction Status: Acute (3) Hypoxia Status: Acute (4) Cellulitis Status: Acute (5) Degenerative joint disease Status: Acute
[2017-10-31] MEDS: ceFAZolin IV 1 gm in Dextrose 1 GM/50 ML BAG IVPB SCH ×3 (00:12→15:49)
[2017-10-31 07:19] LABS: BASO # 0.1 K/uL (0.0-0.2); BASO % 0.7 % (0.0-2.0); EOS # 0.2 K/uL (0.0-0.7); EOS % 1.7 % (0.0-4.0); HEMOGLOBIN 12.1 g/dL (12.0-18.0); LYMPH # 1.8 K/uL (1.0-4.3); LYMPH % 15.5 % (20.0-40.0); MEAN CELL VOLUME 87.4 fL (80.0-94.0); MEAN CORPUSCULAR HEMOGLOBIN 29.3 pg (27.0-31.0); MEAN CORPUSCULAR HGB CONC 33.6 g/dL (33.0-37.0); MEAN PLATELET VOLUME 6.8 fL (7.2-11.7); MONO # 1.1 K/uL (0.0-0.8); MONO % 9.4 % (0.0-10.0); NEUT # 8.6 K/uL (1.8-7.0); NEUT % 72.7 % (50.0-75.0); NRBC % 0.1 % (0.0-2.0); RBC 4.12 Mil/uL (4.40-5.90); RED CELL DISTRIBUTION WIDTH 13.6 % (11.5-14.5); WHITE BLOOD COUNT 11.8 K/uL (4.8-10.8)
[2017-10-31 07:21] LABS: INR 1.2; PROTHROMBIN TIME 13.3 SECONDS (9.7-12.2)
[2017-10-31] MEDS: Enoxaparin 40 mg Syringe SC SCH (09:29)
[2017-10-31] MEDS: Potassium Chloride 20 mEq ER Tab PO SCH (09:30)
[2017-10-31] MEDS ORDERED: Potassium Chloride 20 mEq ER Tab PO ONE (10:45)
--- NOTE | 2017-10-31 12:19 | RAD ---
Chest x-ray two views History: Shortness breath. Comparison: 10/29/2017 Findings: Mild venous congestion. Patchy increased markings at the right lung base. Mild nodularity at the right lung base. Tortuous aorta. Top normal heart size. Impression: Mild venous congestion. Patchy increased markings at the right lung base. Mild nodularity at the right lung base. Tortuous aorta.
--- NOTE | 2017-10-31 21:56 | CP.PCM.PN ---
Subjective - Date & Time of Evaluation Date of Evaluation: 10/31/17 Time of Evaluation: 15:15 - Subjective Subjective: Patient on antibiotic therapy. Lower extremities still edematous. Patient on iv lasix. Potassium level 3.1 today. Supplemental potassium ordered. Objective - Vital Signs/Intake and Output Vital Signs (last 24 hours): Temp Pulse Resp BP Pulse Ox 97.9 F 80 20 165/85 H 94 L 10/31/17 14:00 10/31/17 16:00 10/31/17 14:00 10/31/17 17:58 10/31/17 14:00 - Medications Medications: Current Medications Acetaminophen (Tylenol 325mg Tab) 650 mg PO Q6 PRN PRN Reason: Pain, moderate (4-7) Enoxaparin Sodium (Lovenox) 40 mg SC DAILY [facility] Last Admin: 10/31/17 09:29 Dose: 40 mg Furosemide (Lasix) 40 mg IVP BID [facility] Last Admin: 10/31/17 17:58 Dose: 40 mg Cefazolin Sodium/Dextrose (Ancef Iv 1 Gm Duplex) 1 gm in 50 mls @ 100 mls/hr IVPB Q8H [facility] PRN Reason: Protocol Last Admin: 10/31/17 15:49 Dose: 100 mls/hr Losartan Potassium (Cozaar) 50 mg PO BID [facility] Last Admin: 10/31/17 17:58 Dose: 50 mg Potassium Chloride (K-Dur 20 Meq Er Tab) 20 meq PO DAILY [facility] Stop: 11/03/17 10:01 Last Admin: 10/31/17 09:30 Dose: 20 meq Potassium Chloride (K-Dur 20 Meq Er Tab) 20 meq PO ONCE ONE Stop: 11/01/17 22:01 - Labs Labs: 10/31/17 07:11 10/31/17 07:11 PT 13.3 SECONDS (9.7-12.2) H 10/31/17 07:11 INR 1.2 10/31/17 07:11 APTT 29 SECONDS (21-34) 10/29/17 03:58 - Constitutional Appears: No Acute Distress - Head Exam Head Exam: NORMOCEPHALIC - Eye Exam Eye Exam: Normal appearance Pupil Exam: NORMAL ACCOMODATION - ENT Exam ENT Exam: Normal Exam - Neck Exam Neck Exam: Normal Inspection - Respiratory Exam Respiratory Exam: Decreased Breath Sounds - Cardiovascular Exam Cardiovascular Exam: REGULAR RHYTHM - GI/Abdominal Exam GI & Abdominal Exam: Normal Bowel Sounds - Rectal Exam Rectal Exam: Deferred - Exam Exam: NORMAL INSPECTION - Extremities Exam Extremities Exam: Pedal Edema - Back Exam Back Exam: NORMAL INSPECTION - Neurological Exam Neurological Exam: Oriented x3 - Psychiatric Exam Psychiatric exam: Depressed - Skin Skin Exam: Dry Assessment and Plan (1) Congestive heart failure Status: Acute (2) Ambulatory dysfunction Status: Acute (3) Hypoxia Status: Acute (4) Cellulitis Status: Acute (5) Degenerative joint disease Status: Acute
--- NOTE | 2017-10-31 23:53 | CP.PCM.PN ---
Subjective - Date & Time of Evaluation Date of Evaluation: 10/31/17 Time of Evaluation: 17:35 - Subjective Subjective: Patient with less edema and less pain of the lower extremities. BP slightly elevated Will increase Losartan to 50 mg PO BID. Objective - Vital Signs/Intake and Output Vital Signs (last 24 hours): Temp Pulse Resp BP Pulse Ox 97.9 F 80 20 165/85 H 94 L 10/31/17 14:00 10/31/17 16:00 10/31/17 14:00 10/31/17 17:58 10/31/17 14:00 - Medications Medications: Current Medications Acetaminophen (Tylenol 325mg Tab) 650 mg PO Q6 PRN PRN Reason: Pain, moderate (4-7) Enoxaparin Sodium (Lovenox) 40 mg SC DAILY [facility] Last Admin: 10/31/17 09:29 Dose: 40 mg Furosemide (Lasix) 40 mg IVP BID [facility] Last Admin: 10/31/17 17:58 Dose: 40 mg Cefazolin Sodium/Dextrose (Ancef Iv 1 Gm Duplex) 1 gm in 50 mls @ 100 mls/hr IVPB Q8H [facility] PRN Reason: Protocol Last Admin: 10/31/17 15:49 Dose: 100 mls/hr Losartan Potassium (Cozaar) 50 mg PO BID [facility] Last Admin: 10/31/17 17:58 Dose: 50 mg Potassium Chloride (K-Dur 20 Meq Er Tab) 20 meq PO DAILY [facility] Stop: 11/03/17 10:01 Last Admin: 10/31/17 09:30 Dose: 20 meq Potassium Chloride (K-Dur 20 Meq Er Tab) 20 meq PO ONCE ONE Stop: 11/01/17 22:01 - Labs Labs: 10/31/17 07:11 10/31/17 07:11 PT 13.3 SECONDS (9.7-12.2) H 10/31/17 07:11 INR 1.2 10/31/17 07:11 APTT 29 SECONDS (21-34) 10/29/17 03:58 - Constitutional Appears: No Acute Distress - Head Exam Head Exam: NORMAL INSPECTION - Eye Exam Eye Exam: Normal appearance - ENT Exam ENT Exam: Normal Exam - Neck Exam Neck Exam: Normal Inspection - Respiratory Exam Respiratory Exam: Clear to Ausculation Bilateral - Cardiovascular Exam Cardiovascular Exam: REGULAR RHYTHM - GI/Abdominal Exam GI & Abdominal Exam: Soft, Normal Bowel Sounds - Rectal Exam Rectal Exam: Deferred - Exam Exam: NORMAL INSPECTION - Extremities Exam Additional comments: Erythema and edema of the right lower leg > left lower leg. - Back Exam Back Exam: NORMAL INSPECTION - Neurological Exam Neurological Exam: Alert, Awake, Oriented x3 - Psychiatric Exam Psychiatric exam: Anxious - Skin Skin Exam: Erythema Assessment and Plan (1) Cellulitis of both lower extremities Assessment & Plan: To continue IV antibiotics Status: Acute
[2017-11-01] MEDS: ceFAZolin IV 1 gm in Dextrose 1 GM/50 ML BAG IVPB SCH ×3 (00:44→15:30)
[2017-11-01] MEDS: Enoxaparin 40 mg Syringe SC SCH (09:17)
[2017-11-01] MEDS: Potassium Chloride 20 mEq ER Tab PO SCH (09:18)
[2017-11-01 10:14] LABS: BLOOD UREA NITROGEN 13 mg/dL (9-20); CALCIUM 9.2 mg/dl (8.6-10.4); GFR AFRICAN-AMERICAN > 60; GFR NON-AFRICAN AMERICAN > 60
[2017-11-01] MEDS ORDERED: Potassium Chloride 20 mEq ER Tab PO ONE (22:00)
--- NOTE | 2017-11-01 22:55 | CP.PCM.PN ---
Subjective - Date & Time of Evaluation Date of Evaluation: 11/01/17 Time of Evaluation: 17:25 - Subjective Subjective: Patient has less shortness of breath and less edema. Cellulitis still present. Will continue antibiotic therapy. Objective - Vital Signs/Intake and Output Vital Signs (last 24 hours): Temp Pulse Resp BP Pulse Ox 98.6 F 73 20 140/92 H 96 11/01/17 15:09 11/01/17 16:00 11/01/17 15:09 11/01/17 17:39 11/01/17 15:09 - Medications Medications: Current Medications Acetaminophen (Tylenol 325mg Tab) 650 mg PO Q6 PRN PRN Reason: Pain, moderate (4-7) Enoxaparin Sodium (Lovenox) 40 mg SC DAILY [facility] Last Admin: 11/01/17 09:17 Dose: 40 mg Furosemide (Lasix) 40 mg IVP BID [facility] Last Admin: 11/01/17 17:39 Dose: 40 mg Cefazolin Sodium/Dextrose (Ancef Iv 1 Gm Duplex) 1 gm in 50 mls @ 100 mls/hr IVPB Q8H [facility] PRN Reason: Protocol Last Admin: 11/01/17 15:30 Dose: 100 mls/hr Losartan Potassium (Cozaar) 50 mg PO BID [facility] Last Admin: 11/01/17 17:39 Dose: 50 mg Potassium Chloride (K-Dur 20 Meq Er Tab) 20 meq PO DAILY [facility] Stop: 11/03/17 10:01 Last Admin: 11/01/17 09:18 Dose: 20 meq - Labs Labs: 10/31/17 07:11 11/01/17 08:11 PT 13.3 SECONDS (9.7-12.2) H 10/31/17 07:11 INR 1.2 10/31/17 07:11 APTT 29 SECONDS (21-34) 10/29/17 03:58 - Constitutional Appears: No Acute Distress - Head Exam Head Exam: NORMOCEPHALIC - Eye Exam Eye Exam: Normal appearance Pupil Exam: NORMAL ACCOMODATION - ENT Exam ENT Exam: Normal Exam - Neck Exam Neck Exam: Normal Inspection - Respiratory Exam Respiratory Exam: Decreased Breath Sounds - Cardiovascular Exam Cardiovascular Exam: REGULAR RHYTHM - GI/Abdominal Exam GI & Abdominal Exam: Hyperactive Bowel Sounds - Rectal Exam Rectal Exam: Deferred - Exam Exam: NORMAL INSPECTION - Extremities Exam Extremities Exam: Pedal Edema - Back Exam Back Exam: NORMAL INSPECTION - Neurological Exam Neurological Exam: Oriented x3 - Psychiatric Exam Psychiatric exam: Depressed - Skin Skin Exam: Dry Assessment and Plan (1) Congestive heart failure Status: Acute (2) Ambulatory dysfunction Status: Acute (3) Hypoxia Status: Acute (4) Cellulitis Status: Acute (5) Degenerative joint disease Status: Acute
[2017-11-02] MEDS: Enoxaparin 40 mg Syringe SC SCH (10:22)
[2017-11-02] MEDS: Potassium Chloride 20 mEq ER Tab PO SCH (10:22)
[2017-11-02 14:13] LABS: BASO # 0.1 K/uL (0.0-0.2); BASO % 0.7 % (0.0-2.0); EOS # 0.2 K/uL (0.0-0.7); EOS % 1.3 % (0.0-4.0); HEMOGLOBIN 12.9 g/dL (12.0-18.0); LYMPH # 2.1 K/uL (1.0-4.3); LYMPH % 13.4 % (20.0-40.0); MEAN CELL VOLUME 88.9 fL (80.0-94.0); MEAN CORPUSCULAR HEMOGLOBIN 29.8 pg (27.0-31.0); MEAN CORPUSCULAR HGB CONC 33.6 g/dL (33.0-37.0); MEAN PLATELET VOLUME 7.4 fL (7.2-11.7); MONO # 1.3 K/uL (0.0-0.8); MONO % 8.4 % (0.0-10.0); NEUT # 12.1 K/uL (1.8-7.0); NEUT % 76.2 % (50.0-75.0); RBC 4.34 Mil/uL (4.40-5.90); RED CELL DISTRIBUTION WIDTH 13.5 % (11.5-14.5); WHITE BLOOD COUNT 15.8 K/uL (4.8-10.8)
[2017-11-02 14:34] LABS: ALB/GLOB RATIO 1.4 (1.0-2.1); ALBUMIN 4.2 g/dL (3.5-5.0); ALT/SGPT 15 U/L (21-72); AST/SGOT 33 U/L (17-59); BLOOD UREA NITROGEN 22 mg/dL (9-20); CALCIUM 8.9 mg/dl (8.6-10.4); GFR AFRICAN-AMERICAN > 60; GFR NON-AFRICAN AMERICAN > 60
[2017-11-02] MEDS ORDERED: ceFAZolin IV 1 gm in Dextrose 1 GM/50 ML BAG IVPB SCH (15:00)
[2017-11-02] MEDS: ceFAZolin IV 1 gm in Dextrose 1 GM/50 ML BAG IVPB SCH ×2 (17:43)
[2017-11-03] MEDS: ceFAZolin IV 1 gm in Dextrose 1 GM/50 ML BAG IVPB SCH ×3 (01:25→17:52)
[2017-11-03] MEDS: Enoxaparin 40 mg Syringe SC SCH (10:45)
[2017-11-03] MEDS: Potassium Chloride 20 mEq ER Tab PO SCH (10:47)
--- NOTE | 2017-11-03 22:19 | CP.PCM.PN ---
Subjective - Date & Time of Evaluation Date of Evaluation: 11/03/17 Time of Evaluation: 13:20 - Subjective Subjective: Patient responding to therapy. Less swelling in both lower extremities. He also has less shortness of breath. Repeat lab studies in AM. Objective - Vital Signs/Intake and Output Vital Signs (last 24 hours): Temp Pulse Resp BP Pulse Ox 98.2 F 86 20 112/70 95 11/03/17 15:55 11/03/17 15:55 11/03/17 15:55 11/03/17 17:51 11/03/17 15:55 Intake and Output: 11/03/17 11/04/17 18:59 06:59 Intake Total 400 Output Total 1900 Balance 400 -1900 - Medications Medications: Current Medications Acetaminophen (Tylenol 325mg Tab) 650 mg PO Q6 PRN PRN Reason: Pain, moderate (4-7) Enoxaparin Sodium (Lovenox) 40 mg SC DAILY [facility] Last Admin: 11/03/17 10:45 Dose: 40 mg Furosemide (Lasix) 40 mg IVP BID [facility] Last Admin: 11/03/17 17:51 Dose: 40 mg Cefazolin Sodium/Dextrose (Ancef Iv 1 Gm Duplex) 1 gm in 50 mls @ 100 mls/hr IVPB Q8H [facility] PRN Reason: Protocol Last Admin: 11/03/17 17:52 Dose: 100 mls/hr Losartan Potassium (Cozaar) 50 mg PO BID [facility] Last Admin: 11/03/17 17:52 Dose: 50 mg - Labs Labs: 11/02/17 14:00 11/02/17 14:00 PT 13.3 SECONDS (9.7-12.2) H 10/31/17 07:11 INR 1.2 10/31/17 07:11 APTT 29 SECONDS (21-34) 10/29/17 03:58 - Constitutional Appears: No Acute Distress - Head Exam Head Exam: NORMAL INSPECTION - Eye Exam Eye Exam: Normal appearance Pupil Exam: NORMAL ACCOMODATION - ENT Exam ENT Exam: Normal Exam - Neck Exam Neck Exam: Normal Inspection - Respiratory Exam Respiratory Exam: Decreased Breath Sounds - Cardiovascular Exam Cardiovascular Exam: REGULAR RHYTHM - GI/Abdominal Exam GI & Abdominal Exam: Normal Bowel Sounds - Rectal Exam Rectal Exam: Deferred - Exam Exam: NORMAL INSPECTION - Extremities Exam Extremities Exam: Tenderness - Back Exam Back Exam: NORMAL INSPECTION - Neurological Exam Neurological Exam: Oriented x3 - Psychiatric Exam Psychiatric exam: Depressed - Skin Skin Exam: Dry Assessment and Plan (1) Congestive heart failure Status: Acute (2) Ambulatory dysfunction Status: Acute (3) Hypoxia Status: Acute (4) Cellulitis Status: Acute (5) Degenerative joint disease Status: Acute
[2017-11-04] MEDS: ceFAZolin IV 1 gm in Dextrose 1 GM/50 ML BAG IVPB SCH ×3 (01:56→17:27)
[2017-11-04 07:31] LABS: BASO # 0.1 K/uL (0.0-0.2); BASO % 0.7 % (0.0-2.0); EOS # 0.3 K/uL (0.0-0.7); EOS % 1.7 % (0.0-4.0); HEMOGLOBIN 13.2 g/dL (12.0-18.0); LYMPH # 2.2 K/uL (1.0-4.3); LYMPH % 12.5 % (20.0-40.0); MEAN CELL VOLUME 88.7 fL (80.0-94.0); MEAN CORPUSCULAR HEMOGLOBIN 29.2 pg (27.0-31.0); MEAN CORPUSCULAR HGB CONC 32.9 g/dL (33.0-37.0); MEAN PLATELET VOLUME 7.3 fL (7.2-11.7); MONO # 1.3 K/uL (0.0-0.8); MONO % 7.2 % (0.0-10.0); NEUT # 13.9 K/uL (1.8-7.0); NEUT % 77.9 % (50.0-75.0); RBC 4.51 Mil/uL (4.40-5.90); RED CELL DISTRIBUTION WIDTH 13.8 % (11.5-14.5); WHITE BLOOD COUNT 17.9 K/uL (4.8-10.8)
[2017-11-04] MEDS: Enoxaparin 40 mg Syringe SC SCH (10:42)
--- NOTE | 2017-11-04 22:24 | CP.PCM.PN ---
Subjective - Date & Time of Evaluation Date of Evaluation: 11/04/17 Time of Evaluation: 19:25 - Subjective Subjective: Patient alert and breathing comfortably. WBC count 17,900 today. Will repeat exam in AM. Objective - Vital Signs/Intake and Output Vital Signs (last 24 hours): Temp Pulse Resp BP Pulse Ox 98.4 F 87 18 111/71 95 11/04/17 15:00 11/04/17 15:00 11/04/17 15:00 11/04/17 17:27 11/04/17 15:00 Intake and Output: 11/04/17 11/05/17 18:59 06:59 Intake Total 410 Output Total 650 950 Balance -240 -950 - Medications Medications: Current Medications Acetaminophen (Tylenol 325mg Tab) 650 mg PO Q6 PRN PRN Reason: Pain, moderate (4-7) Enoxaparin Sodium (Lovenox) 40 mg SC DAILY [facility] Last Admin: 11/04/17 10:42 Dose: 40 mg Furosemide (Lasix) 40 mg IVP BID [facility] Last Admin: 11/04/17 17:27 Dose: 40 mg Cefazolin Sodium/Dextrose (Ancef Iv 1 Gm Duplex) 1 gm in 50 mls @ 100 mls/hr IVPB Q8H [facility] PRN Reason: Protocol Last Admin: 11/04/17 17:27 Dose: 100 mls/hr Losartan Potassium (Cozaar) 50 mg PO BID [facility] Last Admin: 11/04/17 17:27 Dose: 50 mg - Labs Labs: 11/04/17 07:20 11/04/17 07:20 PT 13.3 SECONDS (9.7-12.2) H 10/31/17 07:11 INR 1.2 10/31/17 07:11 APTT 29 SECONDS (21-34) 10/29/17 03:58 - Constitutional Appears: No Acute Distress - Head Exam Head Exam: NORMOCEPHALIC - Eye Exam Eye Exam: Normal appearance Pupil Exam: NORMAL ACCOMODATION - ENT Exam ENT Exam: Normal Exam - Neck Exam Neck Exam: Normal Inspection - Respiratory Exam Respiratory Exam: Decreased Breath Sounds - Cardiovascular Exam Cardiovascular Exam: REGULAR RHYTHM - GI/Abdominal Exam GI & Abdominal Exam: Normal Bowel Sounds - Rectal Exam Rectal Exam: Deferred - Exam Exam: NORMAL INSPECTION - Extremities Exam Extremities Exam: Normal Inspection - Back Exam Back Exam: NORMAL INSPECTION - Neurological Exam Neurological Exam: Oriented x3 - Psychiatric Exam Psychiatric exam: Depressed - Skin Skin Exam: Dry Assessment and Plan (1) Congestive heart failure Status: Acute (2) Ambulatory dysfunction Status: Acute (3) Hypoxia Status: Acute (4) Cellulitis Status: Acute (5) Degenerative joint disease Status: Acute
[2017-11-05] MEDS: ceFAZolin IV 1 gm in Dextrose 1 GM/50 ML BAG IVPB SCH ×2 (01:22→10:00)
[2017-11-05 06:57] LABS: BASO # 0.1 K/uL (0.0-0.2); BASO % 0.6 % (0.0-2.0); EOS # 0.3 K/uL (0.0-0.7); EOS % 1.9 % (0.0-4.0); HEMOGLOBIN 13.1 g/dL (12.0-18.0); LYMPH # 2.5 K/uL (1.0-4.3); LYMPH % 14.2 % (20.0-40.0); MEAN CELL VOLUME 89.1 fL (80.0-94.0); MEAN CORPUSCULAR HEMOGLOBIN 30.3 pg (27.0-31.0); MEAN CORPUSCULAR HGB CONC 34.1 g/dL (33.0-37.0); MEAN PLATELET VOLUME 7.6 fL (7.2-11.7); MONO # 1.2 K/uL (0.0-0.8); MONO % 6.7 % (0.0-10.0); NEUT # 13.3 K/uL (1.8-7.0); NEUT % 76.6 % (50.0-75.0); RBC 4.33 Mil/uL (4.40-5.90); RED CELL DISTRIBUTION WIDTH 13.7 % (11.5-14.5); WHITE BLOOD COUNT 17.4 K/uL (4.8-10.8)
[2017-11-05 08:38] VITALS: PULSE 99; RESP 18; TEMP 98; O2SAT 96
[2017-11-05 10:09] VITALS: BP 128/71
[2017-11-05] MEDS: Enoxaparin 40 mg Syringe SC SCH (10:09)
--- NOTE | 2017-11-05 12:37 | CP.PCM.PN ---
Subjective - Date & Time of Evaluation Date of Evaluation: 11/05/17 Time of Evaluation: 12:35 - Subjective Subjective: PATIENT WAS ADMITTED FOR ABD PAIN AND LEG PAIN AAOX3 / DENIES CHEST PAIN OR SOB / LEG SWOLLEN DECREASE SIG Objective - Vital Signs/Intake and Output Vital Signs (last 24 hours): Temp Pulse Resp BP Pulse Ox 98.0 F 99 H 18 128/71 96 11/05/17 08:05 11/05/17 08:05 11/05/17 08:05 11/05/17 10:08 11/05/17 08:05 Intake and Output: 11/05/17 11/05/17 06:59 18:59 Intake Total 290 Output Total 2049 600 Balance -2049 -310 - Medications Medications: Current Medications Acetaminophen (Tylenol 325mg Tab) 650 mg PO Q6 PRN PRN Reason: Pain, moderate (4-7) Enoxaparin Sodium (Lovenox) 40 mg SC DAILY [facility] Last Admin: 11/05/17 10:09 Dose: 40 mg Furosemide (Lasix) 40 mg IVP BID [facility] Last Admin: 11/05/17 10:08 Dose: 40 mg Cefazolin Sodium/Dextrose (Ancef Iv 1 Gm Duplex) 1 gm in 50 mls @ 100 mls/hr IVPB Q8H [facility] PRN Reason: Protocol Last Admin: 11/05/17 10:00 Dose: 100 mls/hr Losartan Potassium (Cozaar) 50 mg PO BID [facility] Last Admin: 11/05/17 10:08 Dose: 50 mg - Labs Labs: 11/05/17 06:44 11/05/17 06:44 PT 13.3 SECONDS (9.7-12.2) H 10/31/17 07:11 INR 1.2 10/31/17 07:11 APTT 29 SECONDS (21-34) 10/29/17 03:58 Assessment and Plan - Assessment and Plan (Free Text) Assessment: PATIENT SEEN AND EXAMINED AT THE BEDSIDE AFEBRILE/ WBC IS TRENDING DOWN / SWELLING DECREASE SIG/ VITAL SIGN STABLE DISCUSS WITH DR WATSON WHO CLEAR FOR DC FOLLOW UP WITH DR WATSON IN HIS OFFICE IN 1-2 WEEK ---CALL FOR APPOINTMENT CONTINUE ALL YOUR HOME MEDICATION NEW PRESCRIPTION GIVEN CEFTIN 250 MG BY MOUTH TWICE A DAY FOR 7 DAYS ACTIVITY TOLERATED CALL DR WATSON OR GO TO THE EMERGENCY ROOM IF SYMPTOMS RETURN OR WORSENING DISCUSS WITH PATIENT WHO AGREE AND VERBALIZED UNDERSTANDING
--- NOTE | 2017-11-05 22:25 | CP.PCM.DIS ---
Provider - Provider Date of Admission: 11/02/17 14:31 Attending physician: Fredrick Kumar MD Time Spent in preparation of Discharge (in minutes): 24 Diagnosis - Discharge Diagnosis (1) Congestive heart failure Status: Acute (2) Ambulatory dysfunction Status: Acute (3) Hypoxia Status: Acute (4) Cellulitis Status: Acute (5) Degenerative joint disease Status: Acute Hospital Course - Lab Results Lab Results: Most Recent Lab Values WBC 17.4 K/uL (4.8-10.8) H 11/05/17 06:44 RBC 4.33 Mil/uL (4.40-5.90) L 11/05/17 06:44 Hgb 13.1 g/dL (12.0-18.0) 11/05/17 06:44 Hct 38.6 % (35.0-51.0) 11/05/17 06:44 MCV 89.1 fL (80.0-94.0) 11/05/17 06:44 MCH 30.3 pg (27.0-31.0) 11/05/17 06:44 MCHC 34.1 g/dL (33.0-37.0) 11/05/17 06:44 RDW 13.7 % (11.5-14.5) 11/05/17 06:44 Plt Count 361 K/uL (130-400) 11/05/17 06:44 MPV 7.6 fL (7.2-11.7) 11/05/17 06:44 Neut % (Auto) 76.6 % (50.0-75.0) H 11/05/17 06:44 Lymph % (Auto) 14.2 % (20.0-40.0) L 11/05/17 06:44 [place] % (Auto) 6.7 % (0.0-10.0) 11/05/17 06:44 Eos % (Auto) 1.9 % (0.0-4.0) 11/05/17 06:44 Baso % (Auto) 0.6 % (0.0-2.0) 11/05/17 06:44 Neut # (Auto) 13.3 K/uL (1.8-7.0) H 11/05/17 06:44 Lymph # (Auto) 2.5 K/uL (1.0-4.3) 11/05/17 06:44 [place] # (Auto) 1.2 K/uL (0.0-0.8) H 11/05/17 06:44 Eos # (Auto) 0.3 K/uL (0.0-0.7) 11/05/17 06:44 Baso # (Auto) 0.1 K/uL (0.0-0.2) 11/05/17 06:44 PT 13.3 SECONDS (9.7-12.2) H 10/31/17 07:11 INR 1.2 10/31/17 07:11 APTT 29 SECONDS (21-34) 10/29/17 03:58 Puncture Site Rr 10/29/17 03:40 pCO2 57 mm/Hg (35-45) H 10/29/17 03:40 pO2 76 mm/Hg (80-100) L 10/29/17 03:40 HCO3 28.2 mmol/L (21-28) H 10/29/17 03:40 ABG pH 7.35 (7.35-7.45) 10/29/17 03:40 ABG Total CO2 33.2 mmol/L (22-28) H 10/29/17 03:40 ABG O2 Saturation 97.0 % (95-98) 10/29/17 03:40 ABG Base Excess 4.3 mmol/L (-2.0-3.0) H 10/29/17 03:40 [place] Test Pos 10/29/17 03:40 ABG Potassium 3.1 mmol/L (3.6-5.2) L 10/29/17 03:40 A-a O2 Difference 52.0 mm/Hg 10/29/17 03:40 Respiratory Index 0.7 10/29/17 03:40 Sodium 138.0 mmol/l (132-148) 10/29/17 03:40 Chloride 101.0 mmol/L (98-107) 10/29/17 03:40 Glucose 140 mg/dl (75-110) H 10/29/17 03:40 Lactate 1.2 mmol/L (0.7-2.1) 10/29/17 03:40 Liter Flow 2.0 10/29/17 03:40 Vent Mode Nasal cannla 10/29/17 03:40 FiO2 28.0 % 10/29/17 03:40 Sodium 138 mmol/L (132-148) 11/05/17 06:44 Potassium 3.9 mmol/L (3.6-5.2) 11/05/17 06:44 Chloride 96 mmol/L (98-107) L 11/05/17 06:44 Carbon Dioxide 30 mmol/L (22-30) 11/05/17 06:44 Anion Gap 17 (10-20) 11/02/17 14:00 BUN 20 mg/dL (9-20) 11/05/17 06:44 Creatinine 1.0 mg/dL (0.8-1.5) 11/02/17 14:00 Est GFR ( Amer) > 60 11/02/17 14:00 Est GFR (Non-Af Amer) > 60 11/02/17 14:00 Random Glucose 140 mg/dL (75-110) H 11/02/17 14:00 Calcium 8.9 mg/dl (8.6-10.4) 11/02/17 14:00 Total Bilirubin 0.8 mg/dL (0.2-1.3) 11/02/17 14:00 AST 33 U/L (17-59) 11/02/17 14:00 ALT 15 U/L (21-72) L D 11/02/17 14:00 Alkaline Phosphatase 78 U/L (38-126) 11/02/17 14:00 Troponin I 0.0220 ng/mL (0.00-0.120) 10/29/17 04:45 NT-Pro-B Natriuret Pep 635 pg/mL (0-450) H 10/31/17 07:11 Total Protein 7.2 g/dL (6.3-8.3) 11/02/17 14:00 Albumin 4.2 g/dL (3.5-5.0) 11/02/17 14:00 Globulin 3.0 gm/dL (2.2-3.9) 11/02/17 14:00 Albumin/Globulin Ratio 1.4 (1.0-2.1) 11/02/17 14:00 Arterial Blood Potassium 3.1 mmol/L (3.6-5.2) L 10/29/17 03:40 Urine Color Yellow (YELLOW) 10/29/17 11:25 Urine Clarity Clear (Clear) 10/29/17 11:25 Urine pH 5.0 (5.0-8.0) 10/29/17 11:25 Ur Specific [place] 1.023 (1.003-1.030) 10/29/17 11:25 Urine Protein 1+ mg/dL (NEGATIVE) H 10/29/17 11:25 Urine Glucose (UA) Normal mg/dL (Normal) 10/29/17 11:25 Urine Ketones Negative mg/dL (NEGATIVE) 10/29/17 11:25 Urine Blood 1+ (NEGATIVE) H 10/29/17 11:25 Urine Nitrate Negative (NEGATIVE) 10/29/17 11:25 Urine Bilirubin Negative (NEGATIVE) 10/29/17 11:25 Urine Urobilinogen 2.0 mg/dL (0.2-1.0) 10/29/17 11:25 Ur Leukocyte Esterase Neg [place]/uL (Negative) 10/29/17 11:25 Urine WBC (Auto) 2 /hpf (0-5) 10/29/17 11:25 Urine RBC (Auto) 15 /hpf (0-3) H 10/29/17 11:25 Urine Opiates Screen Positive (NEGATIVE) H 10/29/17 11:25 Urine Methadone Screen Negative (NEGATIVE) 10/29/17 11:25 Ur Barbiturates Screen Negative (NEGATIVE) 10/29/17 11:25 Ur Phencyclidine Scrn Negative (NEGATIVE) 10/29/17 11:25 Ur Amphetamines Screen Negative (NEGATIVE) 10/29/17 11:25 U Benzodiazepines Scrn Negative (NEGATIVE) 10/29/17 11:25 U Oth Cocaine Metabols Negative (NEGATIVE) 10/29/17 11:25 U Cannabinoids Screen Negative (NEGATIVE) 10/29/17 11:25 Discharge Exam - Head Exam Head Exam: NORMOCEPHALIC - Eye Exam Eye Exam: Normal appearance - ENT Exam ENT Exam: Normal Exam - Neck Exam Neck exam: Normal Inspection - Respiratory Exam Respiratory Exam: Decreased Breath Sounds - Cardiovascular Exam Cardiovascular Exam: REGULAR RHYTHM - GI/Abdominal Exam GI & Abdominal Exam: Normal Bowel Sounds - Rectal Exam Rectal Exam: Deferred - Exam Exam: NORMAL INSPECTION - Extremities Exam Extremities exam: pedal edema - Back Exam Back exam: NORMAL INSPECTION - Psychiatric Exam Psychiatric exam: Depressed - Skin Skin Exam: Dry Discharge Plan - Discharge Medications Prescriptions: Cefuroxime Axetil [Cefuroxime] 250 mg PO BID 7 Days tablet - Follow Up Plan Condition: FAIR Disposition: HOME/ ROUTINE Instructions: Heart Healthy Diet, Heart Failure, Adult (DC), Dependent Edema ( DC), Cellulitis (DC) Additional Instructions: FOLLOW UP WITH DR KUMAR IN HIS OFFICE IN 1-2 WEEK ---CALL FOR APPOINTMENT CONTINUE ALL YOUR HOME MEDICATION NEW PRESCRIPTION GIVEN CEFTIN 250 MG BY MOUTH TWICE A DAY FOR 7 DAYS ACTIVITY TOLERATED CALL DR KUMAR OR GO TO THE EMERGENCY ROOM IF SYMPTOMS RETURN OR WORSENING Referrals: Fredrick Kumar MD [Staff Provider] - Omer Amaya MD [Staff Provider] - Gustavo Moya MD [Staff Provider] -
== END 2017-11-05 13:44 | disposition home or self-care (01) | DRG 127 ==
LOC: C.ER 01:35 → C.9E 05:58 → C.6T 08:23 → OBSVTOIN 11-02 14:31
PROVIDERS: ADMIT Internal Medicine; ATTEND Internal Medicine
DX: I11.0 Hypertensive heart disease with heart failure (principal); L03.115 Cellulitis of right lower limb; L03.116 Cellulitis of left lower limb; R09.02 Hypoxemia; I50.9 Heart failure, unspecified; J45.909 Unspecified asthma, uncomplicated; K21.9 Gastro-esophageal reflux disease without esophagitis; M19.90 Unspecified osteoarthritis, unspecified site; R26.2 Difficulty in walking, not elsewhere classified; F17.210 Nicotine dependence, cigarettes, uncomplicated